=== PATIENT | female | born 1940 | race Caucasian/White ===

== ENCOUNTER → 2018-04-12 12:09 | Outpatient (CLI) | payer MEDICARE, OTHER, SELFPAY ==
--- NOTE | 2018-04-12 12:11 | DI.ECHO.S_ITS ---
[facility]+ [facility] +---------+ : : [address] : : : [place], [place] : : : : [id number] : : : : Phone: [phone] Echocardiogram Report + + :Name: BETTY NUGENT Study Date: 04/12/2018 : :[facility] Exam Location: [facility] : : Gender: Female : :: 1940 Age: 77 yrs BP: 142/58 mmHg: :Reason For Study: Chemotherapy Follow Up : : Performed By: Virginia Pierce : :Referring: LEOBARDO CARDENAS : + + Interpretation Summary The ejection fraction is estimated to be 60-65%. There has been no significant change since the previous study. The right ventricle grossly appears normal in size with probable normal systolic function. Procedure: A two-dimensional transthoracic echocardiogram with color flow and Doppler was performed in limited views only. Focused echocardiogram to assess left ventricular function. Comparison is made with the echocardiogram of 12/31/2017. Most of the acoustic windows were suboptimal, but the best imaging was obtained from the subcostal window. The patient was in normal sinus rhythm during the exam. Left Ventricle: The left ventricle is normal in size. Left ventricular wall thickness is at the upper limits of normal. The ejection fraction is estimated to be 60-65%. There has been no significant change since the previous study. Right Ventricle: The right ventricle grossly appears normal in size with probable normal systolic function. Mitral Valve: The mitral valve is grossly normal. There is trace mitral regurgitation. Aortic Valve: The aortic valve is grossly normal. No aortic regurgitation is present. Tricuspid Valve: The tricuspid valve is normal in structure and function. There is a trace or physiologic amount of tricuspid regurgitation. Pulmonary artery pressures cannot be estimated because of the lack of a measurable TR jet velocity. Great Vessels: The IVC is of normal diameter and collapses greater than 50% with a sniff. This suggests a low right atrial pressure of 3 mm Hg. Pericardium/ Pleura There is no pericardial effusion. There is no pleural effusion. MMode/2D Measurements & Calculations LVIDd: 4.2 cm LVOT diam: 2.0 cm LVIDs: 2.7 cm FS: 36.6 % IVSd: 1.1 cm LVPWd: 0.96 cm Reading Physician:CARLOS
== END ==
PROVIDERS: Family Provider Family Medicine; PCP Family Medicine; Visit Provider Internal Medicine Hematology & Oncology
DX: C56.9 Malignant neoplasm of unspecified ovary (principal); Z08 Encounter for follow-up examination after completed treatment for malignant neoplasm
CPT/HCPCS: 93307

== ENCOUNTER 2018-05-16 10:21 | Emergency (ER) | payer MEDICARE, OTHER, SELFPAY ==
[2018-05-16 10:24] VITALS: TEMP 36.4; BMI 20.5
--- NOTE | 2018-05-16 10:32 | ED.FALL ---
HPI - Fall General Chief Complaint: Fall Stated Complaint: FELL LAST NIGHT Time Seen by Provider: 05/16/18 10:31 Source: patient Mode of arrival: wheelchair Limitations: no limitations History of Present Illness HPI Narrative: 77-year-old female currently being treated for ovarian cancer here for evaluation of a fall. Patient states that last evening she was walking to her car and tripped over her cane. She states she landed on her right knee and right hand and then fell and landed on her face. She does not think that she lost consciousness but she is not exactly sure. Had problems ambulating afterwards. Has not been able to bear weight on her right leg since then. Does have an abrasion and cut above her right eye. No vision changes. Patient not on anticoagulation. Patient states that the time of her fall she did not have chest pain, palpitations, lightheadedness, dizziness. Related Data Home Medications Medication Instructions Recorded Confirmed cholecalciferol (vitamin D3) 2,000 iu PO QDAY #0 09/16/17 05/16/18 [Vitamin D3] cyanocobalamin (vitamin B-12) 500 mcg PO QDAY #0 09/16/17 05/16/18 [Vitamin B-12] Cbd Tincture 1 dose PO DAILY 05/16/18 05/16/18 sertraline 50 mg PO BEDTIME 05/16/18 05/16/18 Previous Rx's Medication Instructions Recorded ondansetron [Zofran ODT] 4 mg SUBLINGUAL Q6HP PRN #30 odt 01/04/18 alprazolam 0.25 mg PO BID PRN #60 tab 03/22/18 docusate sodium [Colace] 100 mg PO BID PRN #14 cap 05/16/18 hydrocodone-acetaminophen [Independence] 1 tab PO Q4-6H PRN #14 tab 05/16/18 Allergies Allergy/AdvReac Type Severity Reaction Status Date / Time Sulfa (Sulfonamide Allergy Intermediate RASH Verified 05/16/18 10:29 Antibiotics) carboplatin AdvReac Severe SEVERE SOB Verified 05/16/18 10:29 Review of Systems Constitutional Denies fatigue, Denies fever(s), Denies frequent falls, Denies lethargy and Denies weakness Eyes Denies blurry vision, Denies diplopia, Denies irritation, Denies loss of vision and Denies eye pain ENT Ears, Nose, Mouth, and Throat: Denies dental pain, Denies vertigo, Denies dizziness, Denies sinus pain, Denies sore throat and Denies throat swelling Cardiovascular Denies chest pain, Denies palpitations and Denies dyspnea Respiratory Denies cough and Denies dyspnea Gastrointestinal Gastrointestinal: Denies cramping, Denies diarrhea, Denies nausea and Denies vomiting Genitourinary Denies dysuria and Denies flank pain Musculoskeletal Comments: Right hip pain Integumentary/Breasts Comments: Abrasions around the right eye Neurologic Denies vertigo, Denies dizziness, Denies frequent falls, Denies loss of vision and Denies weakness Endocrine Denies fatigue and Denies palpitations Hematologic/Lymphatic Denies easy bleeding and Denies easy bruising Allergic/Immunologic Denies urticaria and Denies throat swelling Exam Initial Vital Signs Initial Vital Signs: Vital Signs Temperature 97.6 F 05/16/18 10:24 Const General: cooperative, healthy appearing, comfortable, well developed, well groomed and No acute distress Orientation: alert, awake and oriented x3 HENMO Head: other (Patient with bruising around her right eye with a 2 cm superficial laceration above her right eye. ) Eyes Alignment and Position: alignment normal Conjunctivae: conjunctivae normal Sclera: sclerae normal Pupils: PERRL EOM: EOM intact bilaterally Resp Effort & Inspection: normal respiratory effort Auscultation: clear to auscultation bilaterally Cardio Rate: regular rate Skin Other: 2 cm superficial laceration above the right eye without drainage or bleeding. Bruising around the right eye. Neuro General: alert, awake and oriented x3 Extrem Other: Patient bilateral upper extremities unremarkable Patient pelvis is stable Right ankle and right knee unremarkable Patient with tenderness with flexion of the right hip. Pain with abduction and abduction. [facility] Social History Smoking Status: Current every day smoker Course Orders Ordered: ED Orders 05/16/18 10:37 XR hip w pel if done RT 2V Stat 05/16/18 12:06 CT LE RT wo con Stat Discontinued Medications Hydrocodone Bitart/Acetaminophen (Independence 5/325) 1 tab PO NOW ONE Stop: 05/16/18 13:04 Vital Signs - 8 hr 05/16/18 10:24 05/16/18 11:27 05/16/18 12:56 Temperature 97.6 F Pulse Rate 71 64 Respiratory Rate 16 14 Blood Pressure [Right Arm] 130/56 H 156/69 H Pulse Oximetry 94 96 MDM - Fall Imaging Data X-ray right hip: Radiologist's impression: PROCEDURE: XR HIP W PEL IF DONE RT 2V INDICATIONS: fall TECHNIQUE: AP pelvis with lateral view(s) of the right hip(s). COMPARISON: None. FINDINGS: Bones: No fractures or dislocations. Pelvic ring appears intact. No suspicious bony lesions. Soft tissues: The visualized bowel gas pattern is normal. No suspicious soft tissue calcifications. Multiple surgical clips left hemipelvis. IMPRESSION: Negative for fracture Dictated by: Jomar Rasheed M.D. on 05/16/2018 at 11:34 Approved by: Jomar Rasheed M.D. on 05/16/2018 at 11:35 CT right hip: Radiologist's impression: PROCEDURE: CT LE RT WO CON INDICATIONS: Right proximal femur pain concern for fracture TECHNIQUE: Noncontrast 3 mm axial sections acquired through the bony pelvis. Additional 3 mm axial sections acquired through the symptomatic hip joint, with coronal and sagittal reformats. COMPARISON: [facility], [place], PET/CT SKULL BASE TO MID THIGH, 09/24/2017, 9:12. [facility], [place], CHEST/ABD/PEL WITH CONTRAST, 12/23/2017, 11:06. [facility], [place], XR HIP W PEL IF DONE RT 2V, 05/16/2018, 10:39. FINDINGS: Image quality: Excellent. Bones: There is a nondisplaced right superior pubic ramal fracture. The right hip is anatomic alignment without fracture. Soft tissues: Mild contusion of the subcutaneous tissue of the right thigh. No soft tissue mass or hematoma. Mildly enlarged mesenteric lymph nodes are noted, slightly increased in size compared to those of the congestion aching. Scattered colonic diverticula in sigmoid colon. There is severe atherosclerosis of the aorta and iliac arteries. IMPRESSION: 1. Nondisplaced right superior pubic ramal fracture. 2. Scattered colonic diverticula sigmoid colon. No acute diverticulitis. 3. Mildly enlarged mesenteric lymph nodes, slightly increased in size since the last CT. 4. Severe atherosclerosis. Dictated by: Torito Wei M.D. on 05/16/2018 at 12:28 MDM Narrative Medical decision making narrative: X-ray negative for fracture. I obtained a CT scan secondary to the patient's pain in the location with concerns of an occult hip fracture. The CT scan did show a right superior pubic rami fracture. No femoral neck fracture. Patient does have a walker at home. We did discussed symptom control. We did discuss her diagnosis and projected course. We discussed return precautions. Patient's daughter was at bedside for these discussions. She expressed understanding and agreement with plan. Discharge Plan Departure Patient Disposition: Home, Self-Care Clinical Impression: Fracture of pubic ramus, Contusion of right eye Instructions: DI for Pelvic Fracture, How To Perform RICE (Rest, Ice, Compress, Elevate) Activity Restrictions/Additional Instructions: Recommend you take the medication like we discussed. Call your primary care doctor for a follow-up. You can walk as tolerated and use her walker as needed. Return to the emergency department for any new or worsening symptoms. You can shower like normal using soap and water on the contusion of your right eye. This may actually get a little worse over the next couple days. With regard to this return to the emergency department for any new symptoms, vision problems, any other worsening symptoms. Prescriptions: New docusate sodium [Colace] 100 mg capsule 100 mg PO BID PRN (Reason: constipation) Qty: 14 RF: 0 hydrocodone-acetaminophen [Independence] 5-325 mg tablet 1 tab PO Q4-6H PRN (Reason: pain) Qty: 14 RF: 0 No Action cyanocobalamin (vitamin B-12) [Vitamin B-12] 500 MCG tablet 500 mcg PO QDAY Qty: 0 RF: 0 cholecalciferol (vitamin D3) [Vitamin D3] 2,000 UNIT capsule 2,000 iu PO QDAY Qty: 0 RF: 0 ondansetron [Zofran ODT] 4 MG tablet,disintegrating 4 mg Sublingual Q6HP PRNQty: 30 RF: 0 alprazolam 0.25 mg Tablet 0.25 mg PO BID PRN (Reason: Anxiety) Qty: 60 RF: 0 Cbd Tincture 1 dose PO DAILY RF: 0 sertraline 50 mg tablet 50 mg PO BEDTIME RF: 0
--- NOTE | 2018-05-16 10:37 | DI.RAD.S_ITS ---
PROCEDURE: XR HIP W PEL IF DONE RT 2V INDICATIONS: fall TECHNIQUE: AP pelvis with lateral view(s) of the right hip(s). COMPARISON: None. FINDINGS: Bones: No fractures or dislocations. Pelvic ring appears intact. No suspicious bony lesions. Soft tissues: The visualized bowel gas pattern is normal. No suspicious soft tissue calcifications. Multiple surgical clips left hemipelvis. IMPRESSION: Negative for fracture Dictated by: Jomar Rasheed M.D. on 05/16/2018 at 11:34 Approved by: Jomar Rasheed M.D. on 05/16/2018 at 11:35
[2018-05-16 11:27] VITALS: BP 130/56; PULSE 71; RESP 16; O2SAT 94
--- NOTE | 2018-05-16 12:06 | DI.CT.S_ITS ---
PROCEDURE: CT LE RT WO CON INDICATIONS: Right proximal femur pain concern for fracture TECHNIQUE: Noncontrast 3 mm axial sections acquired through the bony pelvis. Additional 3 mm axial sections acquired through the symptomatic hip joint, with coronal and sagittal reformats. COMPARISON: [facility], [place], PET/CT SKULL BASE TO MID THIGH, 09/24/2017, 9:12. [facility], [place], CHEST/ABD/PEL WITH CONTRAST, 12/23/2017, 11:06. [facility], [place], XR HIP W PEL IF DONE RT 2V, 05/16/2018, 10:39. FINDINGS: Image quality: Excellent. Bones: There is a nondisplaced right superior pubic ramal fracture. The right hip is anatomic alignment without fracture. Soft tissues: Mild contusion of the subcutaneous tissue of the right thigh. No soft tissue mass or hematoma. Mildly enlarged mesenteric lymph nodes are noted, slightly increased in size compared to those of the congestion aching. Scattered colonic diverticula in sigmoid colon. There is severe atherosclerosis of the aorta and iliac arteries. IMPRESSION: 1. Nondisplaced right superior pubic ramal fracture. 2. Scattered colonic diverticula sigmoid colon. No acute diverticulitis. 3. Mildly enlarged mesenteric lymph nodes, slightly increased in size since the last CT. 4. Severe atherosclerosis. Dictated by: Torito Wei M.D. on 05/16/2018 at 12:28 Approved by: Torito Wei M.D. on 05/16/2018 at 12:49
[2018-05-16 12:56] VITALS: BP 156/69; PULSE 64; RESP 14; O2SAT 96
[2018-05-16] MEDS: HYDROCODONE/ACET 5/325 TABLET 1 TAB PO (13:27)
== END 2018-05-16 13:44 | disposition home or self-care (01) ==
PROVIDERS: Emergency Provider Emergency Medicine; Family Provider Family Medicine; PCP Family Medicine
DX: S32.599A Other specified fracture of unspecified pubis, initial encounter for closed fracture (principal); S05.11XA Contusion of eyeball and orbital tissues, right eye, initial encounter; W01.0XXA Fall on same level from slipping, tripping and stumbling without subsequent striking against object, initial encounter
CPT/HCPCS: 73502; 73700; 99283; 99284

== ENCOUNTER → 2018-06-23 09:57 | Outpatient (CLI) | payer MEDICARE, OTHER, SELFPAY ==
--- NOTE | 2018-06-23 11:50 | DI.CT.S_ITS ---
PROCEDURE: CT ABDOMEN PELVIS W CON INDICATIONS: restaging ovarian cancer following chemotherapy TECHNIQUE: After the administration of oral and intravenous contrast, 5 mm thick sections acquired from the diaphragms to the symphysis. 5 mm thick coronal and sagittal reformats were performed. For radiation dose reduction, the following was used: automated exposure control, adjustment of mA and/or kV according to patient size. COMPARISON: [facility], CT, CHEST/ABD/PEL WITH CONTRAST, 12/23/2017, 11:06. FINDINGS: Image quality: Excellent. ABDOMEN: Lung bases: Lung bases are clear. Heart size is normal. Solid organs: Liver is normal in size and enhancement. Gallbladder is within normal limits. Biliary system is non-dilated. Pancreas enhances normally. Spleen is normal in size and enhancement. No right adrenal nodules. No change in 11 mm diameter nodule within the lateral limb of the left adrenal. Kidneys are normal in size and enhancement, without hydronephrosis. Peritoneum and bowel: No change in small hiatal hernia. Stomach, small bowel, and colon loops are normal in caliber and wall thickness. No change in 20 mm diameter soft tissue nodule within the right posterior pelvis, adjacent to small bowel limits. No free fluid or air. Nodes and vessels: No retroperitoneal or mesenteric adenopathy. Scattered mildly prominent mesenteric lymph nodes are unchanged, measuring less than 10 mm short axis. Multiple retroperitoneal surgical clips are present. Severe atherosclerotic plaque of the aorta and its branches. Aorta and inferior vena cava are otherwise normal in caliber. Miscellaneous: No ventral hernias. PELVIS: Genitourinary: Bladder wall thickness is normal. Miscellaneous: No inguinal hernias or adenopathy. Bones: No suspicious bony lesions. No vertebral body compression fractures. IMPRESSION: 1. No change compared to 12.23.18. 2. No change in right posterior pelvic soft tissue nodule. 3. No change in mildly prominent mesenteric lymph nodes. 4. No change in left adrenal nodule. Dictated by: Saad Ramey M.D. on 06/23/2018 at 13:32 Approved by: Saad Ramey M.D. on 06/23/2018 at 13:35
== END ==
PROVIDERS: Family Provider Obstetrics & Gynecology; PCP Family Medicine; Visit Provider Internal Medicine Hematology & Oncology
DX: C56.9 Malignant neoplasm of unspecified ovary (principal)
CPT/HCPCS: 74177; Q9967

== ENCOUNTER → 2018-09-26 08:09 | Outpatient (CLI) | payer MEDICARE, OTHER, SELFPAY ==
--- NOTE | 2018-09-26 08:56 | DI.CT.S_ITS ---
PROCEDURE: CT CHEST ABD PEL W CON INDICATIONS: surveillance ovarian cancer TECHNIQUE: After the administration of oral and intravenous contrast, 5 mm thick sections acquired from the lung apices to the symphysis. 5 mm coronal and sagittal reformats were performed, with additional 7 mm coronal MIP reformats through the lungs. For radiation dose reduction, the following was used: automated exposure control, adjustment of mA and/or kV according to patient size. COMPARISON: [facility], [place], PET NECK TO MID THIGH, 08/03/2018, 13:42. [facility], CT, CT ABDOMEN PELVIS W CON, 06/23/2018, 11:46. [facility], CT, CHEST/ABD/PEL WITH CONTRAST, 12/23/2017, 11:06. FINDINGS: Image quality: Excellent. CHEST: Lungs and pleura: No acute consolidation. No pleural effusions or pneumothorax. Central and peripheral airways appear patent and normal in caliber. Mediastinum: Heart size is normal. No pericardial effusion. No mediastinal or hilar adenopathy by size criteria. Thoracic aorta and central pulmonary arteries are normal in size. Esophagus is normal in caliber. Small hiatal hernia. Chest wall: No axillary or supraclavicular adenopathy by size criteria. Thyroid gland negative. ABDOMEN: Solid organs: Hepatic steatosis otherwise liver is normal in size and enhancement. Gallbladder unremarkable. Biliary system is non dilated. Pancreas enhances normally. Spleen is normal in size and enhancement. No adrenal nodules. Kidneys demonstrate normal size and enhancement, without hydronephrosis. Peritoneum and bowel: Bowel loops demonstrate normal wall thickness and caliber. No free fluid or air. Nodes and vessels: There are scattered multiple small and confluent mesenteric lymph nodes with surrounding hazy attenuation in the mesenteric fat. These appear slightly increased in size and bulk although exact measurements are difficult due to irregular configuration however on image 1.9 x 0.9 cm confluent sharyn tissue previously measured 1.5 x 0.7 cm on 06/23/18. Mild ectasia of the infrarenal abdominal aorta. Miscellaneous: Small paraumbilical bowel containing ventral hernia measuring 2 cm on image 86 series 2. No evidence of obstruction. PELVIS: Genitourinary: Bladder wall thickness is normal. Right posterior pelvic mass measuring 3.2 x 1.5 cm is increased in size since 06/23/18 previously 2.2 x 1.3 cm on the prior study Miscellaneous: No inguinal hernias or adenopathy. Bones: Redemonstration of right superior and inferior pubic ramus fracture with callus formation. Diffuse osteopenia. IMPRESSION: Interval increase in scattered mesenteric lymph nodes since 06/23/18 in keeping with active residual tumor. Right posterior pelvic soft tissue mass also increased in size and demonstrated increased hypermetabolic appearance on the prior PET/CT, consistent with residual active tumor/metastasis. Additional chronic and incidental findings as above. Dictated by: Eleno Martinez M.D. on 09/26/2018 at 11:07 Approved by: Eleno Martinez M.D. on 09/26/2018 at 11:22
== END ==
PROVIDERS: PCP Family Medicine
DX: C56.9 Malignant neoplasm of unspecified ovary (principal); R19.00 Intra-abdominal and pelvic swelling, mass and lump, unspecified site; M85.80 Other specified disorders of bone density and structure, unspecified site; K76.0 Fatty (change of) liver, not elsewhere classified; K43.9 Ventral hernia without obstruction or gangrene; I77.811 Abdominal aortic ectasia
CPT/HCPCS: 71260; 74177; Q9967

== ENCOUNTER 2018-10-19 21:31 | Emergency (ER) | payer MEDICARE, OTHER, SELFPAY ==
[2018-10-19 21:36] VITALS: BP 162/69; PULSE 90; RESP 14; TEMP 36.7; O2SAT 98; BMI 22.1
[2018-10-19 22:00] VITALS: BP 144/55; PULSE 64; RESP 15; TEMP 36.7; O2SAT 100; BMI 22.1
--- NOTE | 2018-10-19 22:12 | ED.BACK ---
HPI - Back Pain/Injury General Chief Complaint: Back Pain/Injury Stated Complaint: SHOOTING PAINS BACK TO FRONT Time Seen by Provider: 10/19/18 22:11 Source: patient Mode of arrival: ambulatory Limitations: no limitations History of Present Illness HPI Narrative: Patient is a 77-year-old female with history of ovarian cancer. Currently undergoing palliative chemotherapy. Here for evaluation of right-sided back pain. She states that it started within the past 24 hr. She was sitting at the kitchen table when it started. She states that it comes and goes. She states it feels like it is a muscle spasm. Is on the right side of her back goes from her lower back to her upper back and even the back of her head. Last for several seconds and then seems to improve. Not worse with palpation or movement. Related Data Home Medications Medication Instructions Recorded Confirmed cholecalciferol (vitamin D3) 2,000 iu PO QDAY #0 09/16/17 09/28/18 [Vitamin D3] cyanocobalamin (vitamin B-12) 500 mcg PO QDAY #0 09/16/17 09/28/18 [Vitamin B-12] Cbd Tincture 1 dose PO DAILY 05/16/18 09/28/18 lorazepam 0.25 mg PO BID-TID PRN 08/09/18 09/28/18 Previous Rx's Medication Instructions Recorded ondansetron [Zofran ODT] 4 mg SUBLINGUAL Q6HP PRN #30 odt 01/04/18 docusate sodium [Colace] 100 mg PO BID PRN #14 cap 05/16/18 sertraline 50 mg PO BEDTIME #90 tab 06/07/18 alprazolam 0.25 mg PO BID PRN #60 tab 10/12/18 cyclobenzaprine 10 mg PO TID PRN #10 tab 10/19/18 Allergies Allergy/AdvReac Type Severity Reaction Status Date / Time carboplatin Allergy Severe SEVERE SOB Verified 10/19/18 21:40 Sulfa (Sulfonamide Allergy Intermediate RASH Verified 10/19/18 21:40 Antibiotics) Review of Systems Constitutional Reports headache(s) and Denies weakness ENT Ears, Nose, Mouth, and Throat: Denies vertigo, Denies dizziness, Reports headache(s) and Denies disequilibrium Cardiovascular Denies chest pain and Denies dyspnea Respiratory Denies dyspnea Gastrointestinal Gastrointestinal: Denies abdominal pain Musculoskeletal Reports back pain, Denies myalgias, Denies arthralgias and Denies tingling Integumentary/Breasts Denies lesions and Denies rash Neurologic Denies confusion, Denies vertigo, Denies dizziness, Reports headache(s), Denies radicular pain, Denies sensory deficit, Denies tingling, Denies disequilibrium and Denies weakness Psychiatric Denies confusion Hematologic/Lymphatic Comments: Not on anticoagulation [facility] Medical History Ovarian cancer (Acute) Social History Smoking Status: Current every day smoker Exam Initial Vital Signs Initial Vital Signs: Vital Signs Temperature 98.0 F 10/19/18 21:36 Pulse Rate 90 10/19/18 21:36 Respiratory Rate 14 10/19/18 21:36 Blood Pressure 162/69 H 10/19/18 21:36 Pulse Oximetry 98 10/19/18 21:36 Const General: cooperative, well developed, well groomed and No acute distress Orientation: alert, awake and oriented x3 HENMT Head: normal to inspection and normocephalic Resp Effort & Inspection: normal respiratory effort Cardio Rate: regular rate Back/Spine/Pelvis Other: Patient had an episode of her muscle spasm while I was in the room. She reported on the right side. It was paraspinal. Did seem to have chirinos muscles on that side. Extended up the erector spinae muscles to her neck. Skin Lesions: no lesions Rashes: no rashes Neuro General: alert, awake and oriented x3 Cognition: normal cognition Speech: speech normal Motor: muscle tone normal throughout Sensory Exam: no sensory deficits noted Extrem General: normal to inspection and capillary refill normal Psych Appearance: grossly normal and well kempt Course Orders Ordered: Discontinued Medications Cyclobenzaprine HCl (Flexeril) 10 mg PO NOW ONE Stop: 10/19/18 22:27 Last Admin: 10/19/18 22:35 Dose: 10 mg Cyclobenzaprine HCl (Flexeril 10 Mg Prepack) 1 bottle MISC SEEINSTR ONE Stop: 10/19/18 22:27 Last Admin: 10/19/18 22:35 Dose: 1 bottle Vital Signs - 8 hr 10/19/18 21:36 10/19/18 22:00 12/12/18 22:42 Temperature 98.0 F 98.0 F Pulse Rate 90 64 64 Respiratory Rate 14 15 15 Blood Pressure 162/69 H 144/55 H 144/55 H Pulse Oximetry 98 100 100 MDM - Back Pain/Injury MDM Narrative Medical decision making narrative: Patient does have a history of ovarian cancer. She states that she does not have any known metastasis to the bone. She has no midline lower back pain. No urinary symptoms. No bowel symptoms. No radiation to her lower extremities. Will hold on radiologic studies today. I do feel that this is most likely muscle spasms are causing her symptoms. Was sent home with Flexeril. We did discuss the importance of her being careful at home to avoid falling. We discussed return precautions. She expressed understanding and agreement with plan. Discharge Plan Departure Patient Disposition: Home Clinical Impression: Muscle spasm of back Discharge Date/Time: 10/19/18 22:43 Interventions: ED Discharge Assessment Last Done: 10/19/18 22:42 Instructions: How to Prevent Falls, DI for Back Spasm Activity Restrictions/Additional Instructions: The medication you were given this evening can make you drowsy. No driving while you are taking it. Please be careful with getting up and movement to prevent falling. Recommend you contact your primary care doctor for a follow-up. Return to the emergency department for any new or worsening symptoms Prescriptions: New cyclobenzaprine 10 mg tablet 10 mg PO TID PRN (Reason: muscle spasm) Qty: 10 RF: 0 No Action cyanocobalamin (vitamin B-12) [Vitamin B-12] 500 MCG tablet 500 mcg PO QDAY Qty: 0 RF: 0 cholecalciferol (vitamin D3) [Vitamin D3] 2,000 UNIT capsule 2,000 iu PO QDAY Qty: 0 RF: 0 ondansetron [Zofran ODT] 4 MG tablet,disintegrating 4 mg Sublingual Q6HP PRNQty: 30 RF: 0 sertraline 50 mg tablet 50 mg PO BEDTIME Qty: 90 RF: 1 lorazepam 0.5 mg Tablet 0.25 mg PO BID-TID PRN (Reason: Anxiety) RF: 0 alprazolam 0.25 mg Tablet 0.25 mg PO BID PRN (Reason: Anxiety) Qty: 60 RF: 0 Cbd Tincture 1 dose PO DAILY RF: 0 docusate sodium [Colace] 100 mg capsule 100 mg PO BID PRN (Reason: constipation) Qty: 14 RF: 0
[2018-10-19] MEDS: CYCLOBENZAPRINE 10 MG PREPACK 1 BOTTLE MISC (22:35)
[2018-10-19] MEDS: CYCLOBENZAPRINE 10 MG TABLET PO (22:35)
[2018-10-19 22:42] VITALS: BP 144/55; PULSE 64; RESP 15; O2SAT 100
== END 2018-10-19 22:43 | disposition home or self-care (01) ==
PROVIDERS: Emergency Provider Emergency Medicine; Family Provider Family Medicine; PCP Family Medicine
DX: M62.830 Muscle spasm of back (principal)
CPT/HCPCS: 36592; 85025; 99282; 99283

== ENCOUNTER → 2018-12-12 10:58 | Outpatient (CLI) | payer MEDICARE, OTHER, SELFPAY ==
--- NOTE | 2018-12-12 11:15 | DI.CT.S_ITS ---
PROCEDURE: CT CHEST ABD PEL W CON INDICATIONS: surveillance TECHNIQUE: After the administration of oral and intravenous contrast, 5 mm thick sections acquired from the lung apices to the symphysis. 5 mm coronal and sagittal reformats were performed, with additional 7 mm coronal MIP reformats through the lungs. For radiation dose reduction, the following was used: automated exposure control, adjustment of mA and/or kV according to patient size. COMPARISON: [facility], CT, CHEST/ABD/PEL WITH CONTRAST, 12/23/2017, 11:06. [facility], CT, CT ABDOMEN PELVIS W CON, 06/23/2018, 11:46. [facility], CT, CT CHEST ABD PEL W CON, 09/26/2018, 9:05. FINDINGS: Image quality: Excellent. CHEST: Lungs and pleura: No acute airspace opacities. No pleural effusions or pneumothorax. Central and peripheral airways appear patent and normal in caliber. Mediastinum: Heart size is normal. No pericardial effusion. No mediastinal or hilar adenopathy by size criteria. Thoracic aorta and central pulmonary arteries are normal in size. Atherosclerotic calcification is noted. Esophagus is normal in caliber. No hiatal hernia. Chest wall: No axillary or supraclavicular adenopathy by size criteria. Thyroid gland demonstrates no significant CT abnormality. ABDOMEN: Solid organs: Liver is normal in size and enhancement. Gallbladder wall does not appear thickened. Biliary system is non dilated. Pancreas enhances normally. Spleen is normal in size and enhancement. Incidental note is made of an accessory spleen along the anterior aspect of the primary spleen. There is a stable nodule seen involving the left lateral adrenal limb. No right adrenal nodules. Kidneys demonstrate normal size and enhancement, without hydronephrosis. Peritoneum and bowel: Bowel loops demonstrate normal wall thickness and caliber. No free fluid or air. Diverticulosis is seen, without findings of active diverticulitis. Nodes and vessels: Enlarged mesenteric lymph nodes are seen, which are slightly increased in size compared to the prior examination. Just anterior to the aorta, there is a 15 x 9 mm nodule. On the prior CT, this same lymph node measured 13 x 7 mm, when measured in a similar fashion. Aorta and inferior vena cava are normal in size. However, distal abdominal aortic ectasia can be seen with irregularity, measuring up to 2.5 cm AP. Atherosclerotic calcification is noted. Periaortic postoperative clips are seen. Miscellaneous: No ventral hernias. The previously seen periumbilical hernia is no longer seen. PELVIS: Genitourinary: Bladder wall thickness is normal. This patient is status post hysterectomy. No adnexal masses are seen. Miscellaneous: There is a right presacral soft tissue mass seen, measuring 3.3 x 2 cm, which is slightly increased in size compared to 09/26/2018, and it measured 3.2 x 1.5 cm, when measured in a similar fashion. Bones: No suspicious bony lesions. No vertebral body compression fractures. Lower cervical spine fixation hardware is seen. Degenerative changes are seen throughout, which are most prominent at the L3-L4 level. Minimal retrolisthesis can be seen at L3-L4. Mild levoconvex scoliotic curvature is noted. IMPRESSION: Increased size of the right presacral mass. Increased size of the mesenteric lymph nodes. Stable left adrenal nodule. Incidental note is made of: Lower cervical spine fixation hardware Accessory spleen Periaortic postoperative clips Diverticulosis is seen, without findings of active diverticulitis. Hysterectomy Levoconvex scoliotic curvature Focal L3-L4 degenerative change Apparent interval periumbilical hernia repair Dictated by: Mateus Figueroa M.D. on 12/12/2018 at 11:57 Approved by: Mateus Figueroa M.D. on 12/12/2018 at 12:09
== END ==
PROVIDERS: Family Provider Family Medicine; PCP Family Medicine; Visit Provider Nurse Practitioner Gerontology
DX: C56.9 Malignant neoplasm of unspecified ovary (principal); R59.0 Localized enlarged lymph nodes; E27.9 Disorder of adrenal gland, unspecified
CPT/HCPCS: 71260; 74177; Q9967

== ENCOUNTER 2019-01-12 12:24 | Outpatient (RCR) | payer MEDICARE, OTHER, SELFPAY ==
--- NOTE | 2019-01-12 16:00 | PT.OIE ---
Current Diagnoses Polyneuropathy, unspecified (01/12/19) Unsteadiness on feet (01/12/19) Past Medical History (Last Updated 10/20/18 @ 02:15 by Harrison Martino DO) Ovarian cancer (Acute) Provider Visit Care Team Role Provider Type Harrison Ott MD Primary Care Provider Physician Specialty: Family Practice Address: [address] [place], [address] Email: MIK Wang Attending Provider Advanced Weather Forecaster Specialty: Internal Medicine Address: [address] [place] [address], [id number] Email: Physical Therapy Initial Evaluation PT-OP-A Visit Information Start: 01/06/19 16:11 Freq: Status: Active Protocol: Document 01/12/19 12:50 LRN (Rec: 01/12/19 14:44 LRN [id number]) Out-Patient Physical Therapy Visit Information Visit Information Visit Type Initial Evaluation Visit Start Time 12:50 Visit Stop Time 13:42 Total Visit Minutes 52 Visit Number 1 Number of MANAGER OUTREACH Visits 0 Evaluation Information Evaluation Date 01/12/19 Precautions Precautions Ovarian cancer history, pt will possibly be restarting chemotherapy, port in place. Other surgeries related to cancer, not yet identified. Osteoporosis, COPD, Arthritis Neuropathy of the feet and hands Lightheaded feeling 99% of the time PT-OP-B Current Condition Start: 01/06/19 16:11 Freq: Status: Active Protocol: Document 01/12/19 12:50 LRN (Rec: 01/12/19 14:44 LRN [id number]) Current Condition History of Current Condition Onset Date Balance deficit onset 10 yrs ago, recent worsening in 2018 Current Complaints Poor balance, difficulty walking & R low back pain radiating into the front History of Current Condition Pt reports she has been undergoing chemotherapy for ovarian cancer for the past year. She suffered a fall on 05/15/19 and reports fracturing her pelvis with worsening of balance over the past year. She denies dizziness or vertigo. She states her problem is feeling lightheaded 99% of the time and is taking travel sickness pills to help control the lightheaded feeling. She is seeing her physician 01/17/19 to determine if she will be restarting chemotherapy. She states since undergoing chemotherapy she has now neuropathy of her feet and hands. She reports having surgeries related to her cancer but is not sure what she has had. Records were unavailable to verify. Prior Treatments and Tests CT scan, 05/16/18, indicates nondisplaced R superior pubic ramal fracture. Future Testing and Treatments Planned MRI Treatment Goals Patient/Caregiver Goals Pt goal is to get the evaluation done to proceed with the next step, improve balance to prevent falling and decrease back pain. Prior Functional Status Baseline Function- ADL's Modified Independent Baseline Function- Mobility Modified Independent Baseline Function- Gait Uses walker. Son helps when needed. Baseline Function- Other Son helps as needed. Current Functional Impairments (Reported) Functional Limitations- ADL's Decreased transfer ability, standing, bending, reaching. Functional Limitations- Mobility/Gait Assistive device needed for safe gait. Personal Factors Other Personal Factors That May Effect Currently deciding on Therapy/Recovery restarting chemotherapy for ovarian cancer. Osteoporosis, COPD, severe athlerosclerosis, arthritis Neuropathy of the feet and hands. History of surgeries related to cancer. PT-OP-C Subjective Start: 01/06/19 16:11 Freq: Status: Active Protocol: Document 01/12/19 12:50 LRN (Rec: 01/12/19 17:16 LRN [id number]) Patient Questionnaires ABC- Activity Specific Balance Confidence Scale ABC Score 16.875 ABC Functional Impairment 80 to <100% Impaired (Score 1- 20) Dizziness Handicap Inventory DHI Functional Impairment 20 to 39% Impaired (Score 20- 39) OP-PT Pain Assessment Pain Assessment Grid Paper Pain Assessment Grid Completed Yes Location R Low Back Pain Location Details R Low back radiating into the anterior abdomen Intensity 5 Scale Used Numeric (1 - 10) Description Aching Radiating Location Anterior abdomen Pain Behaviors Pain Behaviors Holding Area Moaning PT-OP-D Balance Start: 01/06/19 16:11 Freq: Status: Active Protocol: Document 01/12/19 12:50 LRN (Rec: 01/12/19 17:10 LRN [id number]) Balance Tests Loyd Balance Test Loyd Balance Test Score 35 Loyd Impairment Rating 20 to 39% Impaired (Score 34- 44) Single Limb Standing Single Limb- Right 0 Single Limb- Left 0 PT-OP-E Functional Tests Start: 01/06/19 16:11 Freq: Status: Active Protocol: Document 01/12/19 12:50 LRN (Rec: 01/12/19 17:10 LRN [id number]) Functional Tests Timed Up and Go (TUG) Score 41 TUG Impairment Rating 100% Impaired (Score 20) Tinetti Balance and Gait Assessment Balance Score 5 Balance Score Impairment Rating 60 to <80% Impaired (Score 4-6 ) PT-OP-G Mobility & Gait Start: 01/06/19 16:11 Freq: Status: Active Protocol: Document 01/12/19 12:50 LRN (Rec: 01/12/19 17:10 LRN [id number]) OP Gait Assessment Gait Gait Assistance Required: Contact Guard Assist Distance (Feet) 100 Able to Maintain Weight Bearing Status Yes During Gait Assistive Devices Assistive Device None Gait Belt Gait Deviations General Gait Pattern Decreased Stride Length Narrow Based Gait Factors Limiting Gait Function Factors Limiting Gait Function Decreased Strength Poor Balance PT-OP-H Neuro Start: 01/06/19 16:11 Freq: Status: Active Protocol: Document 01/12/19 12:50 LRN (Rec: 01/12/19 17:10 LRN [id number]) Sensation Evaluation Comments Summary Comments Pt appeared to have sensation intact in the LE's and feet to soft touch. PT-OP-J Posture/Palpation/Skin Start: 01/06/19 16:11 Freq: Status: Active Protocol: Document 01/12/19 12:50 LRN (Rec: 01/12/19 17:10 LRN [id number]) Palpation Assessment Location R Low Back Palpation Location Right Paraspinals, Quadratus Lumborum, Upper Gluteals Palpation Findings Soft Tissue Tightness Muscle Guarding Tenderness PT-OP-K Range of Motion Start: 01/06/19 16:11 Freq: Status: Active Protocol: Document 01/12/19 12:50 LRN (Rec: 01/12/19 17:10 LRN [id number]) Ankle and Foot Goniometric Range of Motion Ankle and Foot ROM Limitations ROM Limitations Soft Tissue Tightness Muscle Weakness Comments R ankle DF AROM PT-OP-M Strength Start: 01/06/19 16:11 Freq: Status: Active Protocol: Document 01/12/19 12:50 LRN (Rec: 01/12/19 17:10 LRN [id number]) Trunk Strength Trunk Manual Muscle Testing Testing Position Supine Core Stabilization Decreased with MMT of the LE's . Comments Noted pt unable to maintain neutral position of the trunk with movements of the LE's. Hip Strength Hip Manual Muscle Testing Right Flexion (L2) 2+ Poor+ Extension (S1) 2 Poor Abduction 2 Poor Left Flexion (L2) 2+ Poor+ Extension (S1) 2 Poor Abduction 3 Fair Adduction 2 Poor Knee Strength Knee Manual Muscle Testing Right Flexion (S2) 4- Good- Extension (L3) 5 Normal Left Flexion (S2) 4- Good- Extension (L3) 5 Normal Ankle/Foot Strength Ankle and Foot Manual Muscle Testing Right Dorsiflexion (L4) 5 Normal Plantarflexion (S1) 5 Normal Inversion 5 Normal Eversion (S1) 5 Normal Left Dorsiflexion (L4) 3+ Fair+ Plantarflexion (S1) 5 Normal Inversion 5 Normal Eversion (S1) 5 Normal PT-OP-Q Treatments Start: 01/06/19 16:11 Freq: Status: Active Protocol: Document 01/12/19 12:50 LRN (Rec: 01/12/19 17:10 LRN [id number]) Neuro Re-Education Treatment Balance Activities SLS Details Attempted in front of steps and in open Surface Level Standing arm reach Details Reaching forward with R arm Surface Level Standing EO/EC Details Standing feet together & feet apart Surface Level PT-OP-T Assessment and Plan Start: 01/06/19 16:11 Freq: Status: Active Protocol: Document 01/12/19 12:50 LRN (Rec: 01/12/19 17:10 LRN [id number]) Physical Therapy Assessment Rehab Potential Rehabilitation Potential Good Evaluation Complexity Number of Personal Factors/Comorbidities 3 or More Number of Body Systems Impaired 4 or More Clinical Presentation at Evaluation Unstable Impairments Impairments Balance Functional Mobility Gait Pain ROM Strength Transfers Other Concerns Fall Risk High. Assistive device needed and possibly SBA. Age Related Concerns Osteoporosis, COPD, arthritis, effect on family. Barriers to Rehabilitation Ovarian cancer history, surgical histories associated wtih cancer, Osteoporosis, COPD, arthritis, neuropathy of feet, Back pain. Goals Back Pain Impairment Back pain that is hindering her ability to sleep at night, rated 5-9/10 Short Term Goal (STG) Decreased back pain by 50% STG Duration 02/17/19 Snf Goal (LTG) Pt will be able to self manage her back pain at a tolerable level. LTG Duration 04/19/19 Balance Impairment Decreased Balance per LOYD Score of 30/56 Airport Operations Supervisor Goal (LTG) Loyd Score of > 35 for safe ambulation with assistive device. LTG Duration 03/19/19 Gait Impairment Decreased safety with gait per TUG score of 41 sec's without a device Short Term Goal (STG) Improve TUG score of 20 sec's with a device of 34 sec's without a device. STG Duration 02/17/19 Snf Goal (LTG) Improve LE strength and stability with gait as per TUG score of 10 sec's with a device or 24 sec's without a device. LTG Duration 04/19/19 HEP Impairment Lacks self care HEP Airport Operations Supervisor Goal (LTG) Pt will be independent with a self care HEP to manage her pain, and to improve LE strength and gait. LTG Duration 03/19/19 Assessment Summary Assessment Pt presents with poor balance and gait, probably due to LE weakness, decreased core stability and hindered by neuropathy of the feet. The pt appears to have sensation in the feet with soft touch, therefore potential to improve her balance is good. Currently her low back pain appears at this time to be soft tissue related. She has poor tolerance to palpation of the R low back and upper gluteals with soft tissue tightness noted. Her pain may also be mechanical in nature with pain upon palpation of the lumbar spine (L/S) and adjacent areas. Her L/S appears to be in R rotation and pain at spinous process of L4, L5 with PA pressure. Further manual assessment to the low back and hips was deferred until next visit due to time constraints. The pt will benefit from skilled physical therapy for LE/core ROM & strengthening, balance training, STM and manual therapy to decrease back pain and improve mobility and safety with gait. If chemotherapy resumes precautions and protocols would be helpful in adjusting her physical therapy to provide safe treatments to the patient and those around her. Physical Therapy Plan Frequency and Duration Frequency of Treatment 2x/Week Plan of Care Start Date 01/12/19 Plan of Care End Date 03/17/19 Therapeutic Interventions Therapeutic Interventions Balance Training Coordination Training Gait Training Home Exercise Program Manual Therapy Neuromuscular Re-education Patient/Caregiver Education Self-Care/Home Management Soft Tissue Mobilization Therapeutic Activities Therapeutic Exercises Modalities Cold Pack/Ice Massage Hot Packs Next Visit Focus/Plan Next Note Type Treatment Note Next Visit Plan Therapeutic ex's of LE ROM (R ankle DF, hamstrings) & strengthening (hip, core) ex's with assessment of hip ( rotation ROM & strength) and trunk mobility. Check for L/S involvement in R LBP and treatment as appropriate. Initiate low level balance ex' s. End with STM and/or heat/ ice.
--- NOTE | 2019-01-12 16:30 | PT.OPPOC ---
Current Diagnoses Polyneuropathy, unspecified (01/12/19) Unsteadiness on feet (01/12/19) Provider Visit Care Team Role Provider Type Harrison Ott MD Primary Care Provider Physician Specialty: Family Practice Address: [address] [place], [address] Email: MIK Wang Attending Provider Advanced Apartment House Manager Specialty: Internal Medicine Address: [address] [place] [address], [place], [address] Email: Plan Of Care PT-OP-T Assessment and Plan Start: 01/06/19 16:11 Freq: Status: Active Protocol: Document 01/12/19 12:50 LRN (Rec: 01/12/19 17:10 LRN [id number]) Physical Therapy Assessment Rehab Potential Rehabilitation Potential Good Evaluation Complexity Number of Personal Factors/Comorbidities 3 or More Number of Body Systems Impaired 4 or More Clinical Presentation at Evaluation Unstable Impairments Impairments Balance Functional Mobility Gait Pain ROM Strength Transfers Other Concerns Fall Risk High. Assistive device needed and possibly SBA. Age Related Concerns Osteoporosis, COPD, arthritis, effect on family. Barriers to Rehabilitation Ovarian cancer history, surgical histories associated wtih cancer, Osteoporosis, COPD, arthritis, neuropathy of feet, Back pain. Goals Back Pain Impairment Back pain that is hindering her ability to sleep at night, rated 5-9/10 Short Term Goal (STG) Decreased back pain by 50% STG Duration 02/17/19 Nursing Home Goal (LTG) Pt will be able to self manage her back pain at a tolerable level. LTG Duration 04/19/19 Balance Impairment Decreased Balance per LOYD Score of 30/56 Trader Goal (LTG) Loyd Score of > 35 for safe ambulation with assistive device. LTG Duration 03/19/19 Gait Impairment Decreased safety with gait per TUG score of 41 sec's without a device Short Term Goal (STG) Improve TUG score of 20 sec's with a device of 34 sec's without a device. STG Duration 02/17/19 Trader Goal (LTG) Improve LE strength and stability with gait as per TUG score of 10 sec's with a device or 24 sec's without a device. LTG Duration 04/19/19 HEP Impairment Lacks self care HEP Trader Goal (LTG) Pt will be independent with a self care HEP to manage her pain, and to improve LE strength and gait. LTG Duration 03/19/19 Assessment Summary Assessment Pt presents with poor balance and gait, probably due to LE weakness, decreased core stability and hindered by neuropathy of the feet. The pt appears to have sensation in the feet with soft touch, therefore potential to improve her balance is good. Currently her low back pain appears at this time to be soft tissue related. She has poor tolerance to palpation of the R low back and upper gluteals with soft tissue tightness noted. Her pain may also be mechanical in nature with pain upon palpation of the lumbar spine (L/S) and adjacent areas. Her L/S appears to be in R rotation and pain at spinous process of L4, L5 with PA pressure. Further manual assessment to the low back and hips was deferred until next visit due to time constraints. The pt will benefit from skilled physical therapy for LE/core ROM & strengthening, balance training, STM and manual therapy to decrease back pain and improve mobility and safety with gait. If chemotherapy resumes precautions and protocols would be helpful in adjusting her physical therapy to provide safe treatments to the patient and those around her. Physical Therapy Plan Frequency and Duration Frequency of Treatment 2x/Week Plan of Care Start Date 01/12/19 Plan of Care End Date 03/17/19 Therapeutic Interventions Therapeutic Interventions Balance Training Coordination Training Gait Training Home Exercise Program Manual Therapy Neuromuscular Re-education Patient/Caregiver Education Self-Care/Home Management Soft Tissue Mobilization Therapeutic Activities Therapeutic Exercises Modalities Cold Pack/Ice Massage Hot Packs Next Visit Focus/Plan Next Note Type Treatment Note Next Visit Plan Therapeutic ex's of LE ROM (R ankle DF, hamstrings) & strengthening (hip, core) ex's with assessment of hip ( rotation ROM & strength) and trunk mobility. Check for L/S involvement in R LBP and treatment as appropriate. Initiate low level balance ex' s. End with STM and/or heat/ ice. Plan of Care Dates Plan of Care Start Date 01/12/19 Plan of Care End Date 03/17/19 Please Sign and Return: I have reviewed this Plan of Care and certify that the skilled therapy services above are required to meet the patient?s needs. Physician Signature Date Printed Name and Credentials Clinical Instructor Signature Printed Name and Credentials
--- NOTE | 2019-02-03 11:22 | PT.OPDS ---
Current Diagnoses Polyneuropathy, unspecified (01/12/19) Unsteadiness on feet (01/12/19) Provider Visit Care Team Role Provider Type Harrison Ott MD Primary Care Provider Physician Specialty: Family Practice Address: [address] [place], [address] Email: MIK Wang Attending Provider [employer] Specialty: Internal Medicine Address: [address] [place] [address], [place], [address] Email: Visit Number Visit Number 1 Discharge Summary PT-OP-B Current Condition Start: 01/06/19 16:11 Freq: Status: Active Protocol: Document 01/12/19 12:50 LRN (Rec: 01/12/19 14:44 LRN [id number]) Current Condition History of Current Condition Onset Date Balance deficit onset 10 yrs ago, recent worsening in 2018 Current Complaints Poor balance, difficulty walking & R low back pain radiating into the front History of Current Condition Pt reports she has been undergoing chemotherapy for ovarian cancer for the past year. She suffered a fall on 05/15/19 and reports fracturing her pelvis with worsening of balance over the past year. She denies dizziness or vertigo. She states her problem is feeling lightheaded 99% of the time and is taking travel sickness pills to help control the lightheaded feeling. She is seeing her physician 01/17/19 to determine if she will be restarting chemotherapy. She states since undergoing chemotherapy she has now neuropathy of her feet and hands. She reports having surgeries related to her cancer but is not sure what she has had. Records were unavailable to verify. Prior Treatments and Tests CT scan, 05/16/18, indicates nondisplaced R superior pubic ramal fracture. Future Testing and Treatments Planned MRI Treatment Goals Patient/Caregiver Goals Pt goal is to get the evaluation done to proceed with the next step, improve balance to prevent falling and decrease back pain. Prior Functional Status Baseline Function- ADL's Modified Independent Baseline Function- Mobility Modified Independent Baseline Function- Gait Uses walker. Son helps when needed. Baseline Function- Other Son helps as needed. Current Functional Impairments (Reported) Functional Limitations- ADL's Decreased transfer ability, standing, bending, reaching. Functional Limitations- Mobility/Gait Assistive device needed for safe gait. Personal Factors Other Personal Factors That May Effect Currently deciding on Therapy/Recovery restarting chemotherapy for ovarian cancer. Osteoporosis, COPD, severe athlerosclerosis, arthritis Neuropathy of the feet and hands. History of surgeries related to cancer. PT-OP-C Subjective Start: 01/06/19 16:11 Freq: Status: Active Protocol: Document 01/12/19 12:50 LRN (Rec: 01/12/19 17:16 LRN [id number]) Patient Questionnaires ABC- Activity Specific Balance Confidence Scale ABC Score 16.875 ABC Functional Impairment 80 to <100% Impaired (Score 1- 20) Dizziness Handicap Inventory DHI Functional Impairment 20 to 39% Impaired (Score 20- 39) OP-PT Pain Assessment Pain Assessment Grid Paper Pain Assessment Grid Completed Yes Location R Low Back Pain Location Details R Low back radiating into the anterior abdomen Intensity 5 Scale Used Numeric (1 - 10) Description Aching Radiating Location Anterior abdomen Pain Behaviors Pain Behaviors Holding Area Moaning PT-OP-D Balance Start: 01/06/19 16:11 Freq: Status: Active Protocol: Document 01/12/19 12:50 LRN (Rec: 01/12/19 17:10 LRN [id number]) Balance Tests Tamez Balance Test Tamez Balance Test Score 35 Tamez Impairment Rating 20 to 39% Impaired (Score 34- 44) Single Limb Standing Single Limb- Right 0 Single Limb- Left 0 PT-OP-E Functional Tests Start: 01/06/19 16:11 Freq: Status: Active Protocol: Document 01/12/19 12:50 LRN (Rec: 01/12/19 17:10 LRN [id number]) Functional Tests Timed Up and Go (TUG) Score 41 TUG Impairment Rating 100% Impaired (Score 20) Tinetti Balance and Gait Assessment Balance Score 5 Balance Score Impairment Rating 60 to <80% Impaired (Score 4-6 ) PT-OP-G Mobility & Gait Start: 01/06/19 16:11 Freq: Status: Active Protocol: Document 01/12/19 12:50 LRN (Rec: 01/12/19 17:10 LRN [id number]) OP Gait Assessment Gait Gait Assistance Required: Contact Guard Assist Distance (Feet) 100 Able to Maintain Weight Bearing Status Yes During Gait Assistive Devices Assistive Device None Gait Belt Gait Deviations General Gait Pattern Decreased Stride Length Narrow Based Gait Factors Limiting Gait Function Factors Limiting Gait Function Decreased Strength Poor Balance PT-OP-H Neuro Start: 01/06/19 16:11 Freq: Status: Active Protocol: Document 01/12/19 12:50 LRN (Rec: 01/12/19 17:10 LRN [id number]) Sensation Evaluation Comments Summary Comments Pt appeared to have sensation intact in the LE's and feet to soft touch. PT-OP-J Posture/Palpation/Skin Start: 01/06/19 16:11 Freq: Status: Active Protocol: Document 01/12/19 12:50 LRN (Rec: 01/12/19 17:10 LRN [id number]) Palpation Assessment Location R Low Back Palpation Location Right Paraspinals, Quadratus Lumborum, Upper Gluteals Palpation Findings Soft Tissue Tightness Muscle Guarding Tenderness PT-OP-K Range of Motion Start: 01/06/19 16:11 Freq: Status: Active Protocol: Document 01/12/19 12:50 LRN (Rec: 01/12/19 17:10 LRN [id number]) Ankle and Foot Goniometric Range of Motion Ankle and Foot ROM Limitations ROM Limitations Soft Tissue Tightness Muscle Weakness Comments R ankle DF AROM PT-OP-M Strength Start: 01/06/19 16:11 Freq: Status: Active Protocol: Document 01/12/19 12:50 LRN (Rec: 01/12/19 17:10 LRN [id number]) Trunk Strength Trunk Manual Muscle Testing Testing Position Supine Core Stabilization Decreased with MMT of the LE's . Comments Noted pt unable to maintain neutral position of the trunk with movements of the LE's. Hip Strength Hip Manual Muscle Testing Right Flexion (L2) 2+ Poor+ Extension (S1) 2 Poor Abduction 2 Poor Left Flexion (L2) 2+ Poor+ Extension (S1) 2 Poor Abduction 3 Fair Adduction 2 Poor Knee Strength Knee Manual Muscle Testing Right Flexion (S2) 4- Good- Extension (L3) 5 Normal Left Flexion (S2) 4- Good- Extension (L3) 5 Normal Ankle/Foot Strength Ankle and Foot Manual Muscle Testing Right Dorsiflexion (L4) 5 Normal Plantarflexion (S1) 5 Normal Inversion 5 Normal Eversion (S1) 5 Normal Left Dorsiflexion (L4) 3+ Fair+ Plantarflexion (S1) 5 Normal Inversion 5 Normal Eversion (S1) 5 Normal PT-OP-T Assessment and Plan Start: 01/06/19 16:11 Freq: Status: Active Protocol: Document 02/03/19 11:21 LRN (Rec: 02/03/19 11:22 LRN [id number]) Physical Therapy Plan Discharge Physical Therapy Discharge Reasons Patient Request Discharge Comments Notified 01/20/19 that pt requested DC due to starting chemo treatments.
== END 2019-01-12 13:24 | disposition home or self-care (01) ==
LOC: PHYS 12:24
PROVIDERS: PCP Family Medicine; Visit Provider Nurse Practitioner Gerontology
DX: R26.81 Unsteadiness on feet (principal); G62.9 Polyneuropathy, unspecified
CPT/HCPCS: 97112; 97163

== ENCOUNTER → 2019-01-25 13:20 | Outpatient (CLI) | payer MEDICARE, OTHER, SELFPAY ==
--- NOTE | 2019-01-25 13:40 | DI.MRI.S_ITS ---
PROCEDURE: MR BRAIN (IAC) WWO CON INDICATIONS: Malignant neoplasm of unspecified ovary. Rule out metastases. TECHNIQUE: Noncontrast sagittal T1 spin echo, axial FLAIR, axial gradient echo, axial diffusion and ADC through the brain. Axial thin-slice 3D CISS, coronal TruFISP, axial T1 spin echo with fat saturation through the internal auditory canals. After the administration of contrast, thin slice axial and coronal T1 spin echo with fat saturation through the internal auditory canals, and axial T1 spin echo with fat saturation through the brain. COMPARISON: [facility], [place], PET NECK TO MID THIGH, 08/03/2018, 13:42. FINDINGS: Image quality: Excellent. Cerebellopontine angles: No cerebellopontine angle masses. Inner ear structures appear normally formed. No suspicious enhancement in the internal auditory canal or along the course of the 7th cranial nerve. CSF spaces: Ventricles are dilated but symmetrical in size and shape. No extra-axial fluid collections. Basal cisterns are patent. Brain: No intracranial bleeds or mass effects. There is moderate to severe cerebral volume loss. Moderate periventricular white matter chronic small vessel ischemic changes are present. No abnormal intracranial enhancement. Diffusion weighted images demonstrate no acute ischemic insults. Brainstem appears normal. Normal intravascular flow voids are present. Skull and face: Calvarial marrow signal is normal. Orbits appear normal. Sinuses: Sinuses and mastoids are clear. IMPRESSION: 1. No evidence for intracranial metastases. 2. Cerebral volume loss and chronic microvascular ischemic changes. 3. Ventricular dilation may be secondary to central atrophy or normal pressure hydrocephalus. Recommend clinical correlation. Dictated by: Torito Wei M.D. on 01/25/2019 at 15:31 Approved by: Torito Wei M.D. on 01/25/2019 at 17:25
== END ==
PROVIDERS: PCP Family Medicine
DX: C56.9 Malignant neoplasm of unspecified ovary (principal)
CPT/HCPCS: 70553; A9579

== ENCOUNTER 2019-01-27 08:13 | Day surgery (SDC) | payer MEDICARE, OTHER, SELFPAY ==
--- NOTE | 2019-01-25 10:05 | ONC.SCHED ---
Robin Ely in DI: Nurse reviewed meds and instructed us to inform patient to stop Desyrel 9 hours prior to lumbar puncture. I called the patient and left her a message with this information.
[2019-01-27] VITALS (11 sets, daily range): BP systolic 127–172; BP diastolic 59–82; PULSE 65–80; RESP 15–18; TEMP 36.3–36.8; O2SAT 94–97; BMI 22.1
--- NOTE | 2019-01-27 09:18 | DI.RAD.S_ITS ---
PROCEDURE: FL GUIDED LUMBAR PUNCTURE LP INDICATIONS: lp TECHNIQUE: The indications, alternatives, benefits, risks, and complications were explained to the patient. Written informed consent was obtained and placed in the chart. The patient was placed in a prone position on the fluoroscopy table, and a level was chosen for percutaneous access under fluoroscopic guidance. The site was prepped and draped in a sterile fashion. After local anaesthetic, a spinal needle was then used to enter the intrathecal space, with return of cerebrospinal fluid. After obtaining sufficient fluid, the needle was then withdrawn, and a bandage applied to the puncture site. FINDINGS: Puncture level: L3-L4 Needle: 22 gauge spinal needle. Opening pressure: 14.5 cm H2O CSF volume and description: 10 cc of clear CSF was obtained and sent to the laboratory for analysis Medications: 1% lidocaine for anaesthesia. Complications: None Laboratories: As ordered by referring clinician. IMPRESSION: Successful fluoroscopically guided lumbar puncture. Dictated by: Eleno Martinez M.D. on 01/27/2019 at 12:07 Approved by: Eleno Martinez M.D. on 01/27/2019 at 12:08
--- NOTE | 2019-01-27 10:45 | SUR.PHASEII ---
1034 Received patient from DI; pleasant, comfortable,only request was for coffee (given). Report given to Katherin Fox Rn; meal ordered.
[2019-01-27 11:07] LABS: Glucose CSF 55 mg/dL (40-70); Total Protein CSF 48 mg/dL (12-60)
[2019-01-27 11:16] LABS: Appearance CSF Clear (Clear); CSF Tube Number 3; CSF Tube Volume 3.0 mL; Color CSF Colorless (Colorless); Red Blood Cell CSF 20 RBC /uL; White Blood Cell CSF 0 MONO/uL (0-5)
--- NOTE | 2019-01-27 12:01 | SUR.PREOP ---
0900: after numbing the pt's skin over port site with 0.2ml of 1% lidocaine, I accessed the pt's port according to policy and procedure. I got a positive blood return then flushed with 10cc normal saline and 5cc 100unit/ml heparin. Pt tolerated procedure well, stating I didn't feel a thing.
== END 2019-01-27 12:35 | disposition home or self-care (01) ==
LOC: OR 08:17
PROVIDERS: PCP Family Medicine
PROC: 009U3ZZ Drainage of Spinal Canal, Percutaneous Approach (ICD-10-PCS; principal; 2019-01-27 10:00)
DX: G91.2 (Idiopathic) normal pressure hydrocephalus (principal); C56.9 Malignant neoplasm of unspecified ovary; G47.33 Obstructive sleep apnea (adult) (pediatric); I10 Essential (primary) hypertension; I25.10 Atherosclerotic heart disease of native coronary artery without angina pectoris; F41.9 Anxiety disorder, unspecified; J44.9 Chronic obstructive pulmonary disease, unspecified
CPT/HCPCS: 62270; 76000; 82945; 84157; 89051

== ENCOUNTER 2019-02-19 10:33 | Emergency (ER) | payer MEDICARE, OTHER, SELFPAY ==
[2019-02-19 11:07] VITALS: BP 133/72; PULSE 101; RESP 18; TEMP 36.2; O2SAT 96; BMI 20.4
[2019-02-19] MEDS: SODIUM CHLORIDE 0.9% 1,000 ML 1000 ML IV (13:00)
--- NOTE | 2019-02-19 13:22 | ED.NAVMDI ---
HPI - Nausea/Vomiting/Diarrhea General Chief complaint: Nausea/Vomiting/Diarrhea Stated complaint: Cancer patient, can't keep food down Time Seen by Provider: 02/19/19 12:02 Source: patient and family Mode of arrival: ambulatory Limitations: no limitations History of Present Illness HPI Narrative: Patient comes emergency department complaining of nausea and vomiting for the last approximately week. Patient has a longstanding history of ovarian cancer which has recently recurred, and patient was started on a new chemotherapeutic agent 2 days before symptoms began. Patient states she has a history of these kinds of symptoms with prior chemotherapy. Patient states that it is typical for her to feel okay for a few days after the chemo, and then began having severe nausea and vomiting. Patient states she has not been able to keep down her pain medication, and so her pain level is also higher than usual. She states that the Zofran has not been controlling her symptoms this time, though usually works pretty well for her nausea. Patient denies fevers or chills. She states that her symptoms are very typical of previous episodes. Patient denies urinary complaints. No diarrhea. Patient has had no chest pain shortness of breath. patient states that her various children come and stay with her when she is not feeling well, though she does generally live at home on her own. Related Data Home Medications Medication Instructions Recorded Confirmed cholecalciferol (vitamin D3) 2,000 iu PO QDAY #0 09/16/17 02/15/19 [Vitamin D3] cyanocobalamin (vitamin B-12) 500 mcg PO QDAY #0 09/16/17 02/15/19 [Vitamin B-12] Cbd Tincture 1 dose PO DAILY 05/16/18 02/15/19 lorazepam 0.25 mg PO BID-TID PRN 08/09/18 02/15/19 alprazolam 5 mg PO PRN PRN 01/27/19 02/15/19 Previous Rx's Medication Instructions Recorded ondansetron [Zofran ODT] 4 mg SUBLINGUAL Q6HP PRN #30 odt 01/04/18 trazodone 25 mg PO DAILY PRN #30 tab 11/21/18 alprazolam 0.25 mg PO BID PRN #60 tab 01/05/19 ondansetron HCl [Zofran] 4 mg PO Q6-8H PRN #30 tab 01/05/19 morphine [MS Contin] 15 mg PO Q12H 30 Days #60 tab 02/07/19 oxycodone 10 mg PO Q4-6H PRN #60 tab 02/07/[address] Q12H PRN #12 each 02/19/19 Allergies Allergy/AdvReac Type Severity Reaction Status Date / Time carboplatin Allergy Severe SEVERE SOB Verified 02/19/19 11:07 Sulfa (Sulfonamide Allergy Intermediate RASH Verified 02/19/19 11:07 Antibiotics) Review of Systems Constitutional Denies chills, Denies fever(s), Denies lethargy and Denies weakness Eyes Denies change in vision, Denies eye discharge, Denies irritation and Denies loss of vision ENT Ears, Nose, Mouth, and Throat: Denies change in voice, Denies neck pain and Denies sore throat Cardiovascular Denies chest pain, Denies irregular heart rhythm, Denies lightheadedness, Denies palpitations, Denies dyspnea, Denies dyspnea on exertion and Denies orthopnea Respiratory Denies cough, Denies dyspnea, Denies dyspnea on exertion and Denies wheezing Gastrointestinal Gastrointestinal: Reports abdominal pain, Denies change in bowel habits, Denies diarrhea, Reports nausea and Reports vomiting Genitourinary Denies hematuria, Denies flank pain, Denies urinary incontinence and Denies urinary urgency Musculoskeletal Denies neck pain Integumentary/Breasts Denies pruritus, Denies erythema, Denies rash and Denies wounds Neurologic Denies confusion, Denies loss of vision and Denies weakness Psychiatric Denies anxiety, Denies confusion, Denies depression, Denies homicidal ideation and Denies suicidal ideation Endocrine Denies palpitations Hematologic/Lymphatic Denies easy bruising Allergic/Immunologic Denies wheezing [facility] Medical History (Updated 02/21/19 @ 14:25 by Grady Diez MD) Normal pressure hydrocephalus (Acute) Ovarian cancer (Acute) Ovarian cancer in remission (Acute) Spinal stenosis in cervical region (Acute) Cervical spondylosis with radiculopathy (Acute) Back pain (Acute) Chest pain (Acute) Ovarian cancer (Acute) Exam Initial Vital Signs Initial Vital Signs: Vital Signs Temperature 97.2 F L 02/19/19 11:07 Pulse Rate 101 H 02/19/19 11:07 Respiratory Rate 18 02/19/19 11:07 Blood Pressure 133/72 02/19/19 11:07 Pulse Oximetry 96 02/19/19 11:07 Const General: cooperative and well developed Nutritional Appearance: well nourished Orientation: alert, awake, oriented x3 and not confused [facility] Head: normocephalic and atraumatic Ears: external ears normal Nose: external nose normal and No nasal discharge Face and sinus: face symmetric and No dry mucous membranes Mouth: oral mucosae normal and moist mucous membranes Teeth and gingiva: dentition normal Eyes General: appearance normal, both eyes and all related structures Eyelids: eyelids normal Conjunctivae: conjunctivae normal Sclera: sclerae normal Pupils: PERRL EOM: EOM intact bilaterally Neck Neck: normal visual inspection, trachea midline, No lymphadenopathy, No midline deformity and No JVD Lymphatic: No lymphedema Chest Chest: normal inspection of the chest Resp Effort & Inspection: normal respiratory effort, able to speak in complete sentences, no respiratory distress and no use of accessory muscles Auscultation: clear to auscultation bilaterally, no rales, no rhonchi and no wheezes Cardio Rate: regular rate Rhythm: regular rhythm Heart Sounds: no click, no gallops, no murmurs and no rubs Pulses: normal peripheral pulses GI Inspection: non-distended Palpation: soft, no hepatosplenomegaly, No guarding, No pulsatile mass and tender (Bilateral lower quadrants, no rebound) Back/Spine/Pelvis Back: No CVA tenderness Cervical Spine: cervical ROM normal and No pain with cervical ROM Thoracic/Lumbar Spine: thoracic and lumbar spine normal to inspection Skin General: no rashes or lesions noted, No jaundice and No petechiae Neuro General: alert, oriented x3, gait normal and no focal motor deficits Speech: speech normal Extrem General: full ROM, no clubbing, cyanosis or edema, no pedal edema and no calf tenderness Psych Appearance: well kempt Mental Status: mental status grossly normal Attitude: cooperative Thought Content: normal and suicidality Judgment: judgment good Course Course Narrative: The patient was worked up with laboratory studies, and treated with IV fluids, analgesics, and antiemetics in the emergency department. On re-evaluation, patient was found to be feeling much much better, and I felt she was stable for discharge home. The patient family were comfortable with this. I have given her prescriptions for medications to use at home to help with symptomatic relief. We have discussed the usual indications for return, as well as symptomatic management as an outpatient. Orders Ordered: Discontinued Medications Hydromorphone HCl (Dilaudid) 2 mg IV NOW ONE Stop: 02/19/19 13:23 Last Admin: 02/19/19 13:46 Dose: 2 mg Sodium Chloride (Normal Saline 0.9%) 1,000 mls @ 1,000 mls/hr IV BOLUS ONE Stop: 02/19/19 14:29 Last Infusion: 02/19/19 14:52 Dose: 1,000 mls/hr Admin: 02/19/19 13:00 Dose: 1,000 mls/hr Prochlorperazine (Compazine) 10 mg IV NOW ONE Stop: 02/19/19 13:23 Last Admin: 02/19/19 13:46 Dose: 10 mg Vital Signs - 8 hr 02/19/19 11:07 Temperature 97.2 F L Pulse Rate 101 H Respiratory Rate 18 Blood Pressure 133/72 Pulse Oximetry 96 MDM - Nausea/Vomiting/Diarrhea Medical Records Attestation: I reviewed the patient's medical records. Lab Data Attestation: I reviewed the patient's lab results. Result diagrams: 02/19/19 12:30 02/19/19 12:30 Lab Results 02/19/19 02/19/19 Range/Units 12:30 12:30 WBC 1.8 L* (4.5-11.0) X10^3/uL RBC 5.20 (4.0-5.2) X10^6/uL Hgb 14.5 (12.0-16.0) g/dL Hct 42.8 (36-46) % MCV 82.4 (80-100) fL MCH 27.9 (26-34) PG MCHC 33.8 (30-36) % RDW 13.7 (11.6-14.8) % Plt Count 270 (150-400) X10^3/uL Neut % (Auto) Not Reportable Lymph % (Auto) Not Reportable [place] % (Auto) Not Reportable Eos % (Auto) Not Reportable Baso % (Auto) Not Reportable Lymph # (Auto) Not Reportable [place] # (Auto) Not Reportable Baso # (Auto) Not Reportable Total Counted 50 Seg Neutrophils % 58.0 (38-70) % Band Neutrophils % 6.0 (3-7) % Lymphocytes % (Manual) 20.0 L (25-45) % Atypical Lymphs % 8.0 H ( - 0) % Monocytes % (Manual) 2.0 (2-11) % Eosinophils % (Manual) 2.0 (2-4) % Metamyelocytes % 4.0 H (-0) % Neutrophils # (Manual) 1152 L (3055-4972) /uL RBC Morphology Normal morphology Sodium 137 (137-145) mmol/L Potassium 4.4 (3.4-5.1) mmol/L Chloride 94 L (98-107) mmol/L Carbon Dioxide 30 (22-32) mmol/L BUN 22 H (7-17) mg/dL Creatinine 0.90 (0.52-1.04) mg/dL Estimated GFR > 60.0 (>60) mL/min BUN/Creatinine Ratio 24.4 H (6-22) Glucose 134 H (80-110) mg/dL Calcium 9.6 (8.4-10.2) mg/dL Total Bilirubin 0.7 (0.2-1.3) mg/dL AST 21 (14-36) IU/L ALT 14 (9-52) IU/L Alkaline Phosphatase 64 (38-126) U/L Total Protein 7.3 (6.3-8.2) g/dL Albumin 4.0 (3.5-5.0) g/dL Globulin 3.3 (1.7-4.1) g/dL Albumin/Globulin Ratio 1.2 (1.0-2.8) Discharge Plan Departure Patient Disposition: Home Clinical Impression: Acute dehydration Vomiting Qualifiers: Vomiting type: bilious vomiting Nausea presence: with nausea Qualified Code(s): R11.14 - Bilious vomiting Abdominal pain Qualifiers: Abdominal location: lower abdomen, unspecified Qualified Code(s): R10.30 - Lower abdominal pain, unspecified Discharge Date/Time: 02/19/19 15:45 Interventions: ED Discharge Assessment Last Done: 02/19/19 15:07 Instructions: DI for Dehydration -- Adult, DI for Vomiting -- Adult Activity Restrictions/Additional Instructions: Your labs were unremarkable for any significant abnormalities. Your vomiting is most likely reaction to your chemotherapy. Please speak with your oncologist about whether this chemotherapy agent is the right choice for you. You may use the Zofran and the Compazine, as needed for nausea. Please continue your usual home medications for pain. Prescriptions: New prochlorperazine 25 mg suppository [address] Q12H PRN (Reason: nausea and vomiting) Qty: 12 RF: 2 No Action cyanocobalamin (vitamin B-12) [Vitamin B-12] 500 MCG tablet 500 mcg PO QDAY Qty: 0 RF: 0 cholecalciferol (vitamin D3) [Vitamin D3] 2,000 UNIT capsule 2,000 iu PO QDAY Qty: 0 RF: 0 ondansetron [Zofran ODT] 4 MG tablet,disintegrating 4 mg Sublingual Q6HP PRNQty: 30 RF: 0 lorazepam 0.5 mg Tablet 0.25 mg PO BID-TID PRN (Reason: Anxiety) RF: 0 trazodone 50 mg Tablet 25 mg PO DAILY PRN (Reason: Insomnia) Qty: 30 RF: 1 alprazolam 0.25 mg Tablet 0.25 mg PO BID PRN (Reason: Anxiety) Qty: 60 RF: 0 ondansetron HCl [Zofran] 4 mg Tablet 4 mg PO Q6-8H PRN (Reason: Nausea) Qty: 30 RF: 2 oxycodone 10 mg Tablet 10 mg PO Q4-6H PRN (Reason: cancer pain) Qty: 60 RF: 0 morphine [MS Contin] 15 mg Tablet Extended Release 15 mg PO Q12H 30 Days Qty: 60 RF: 0 Cbd Tincture 1 dose PO DAILY RF: 0 alprazolam 2 mg Tablet 5 mg PO PRN PRN (Reason: Anxiety) RF: 0 Referrals: Harrison Ott MD [Primary Care Provider] -
[2019-02-19 13:30] VITALS: BP 187/65; PULSE 72; RESP 15; O2SAT 92
[2019-02-19 13:46] LABS: Alanine Aminotransferase 14 IU/L (9-52); Albumin Globulin Ratio 1.2 (1.0-2.8); Alkaline Phosphatase 64 U/L (38-126); Aspartate Aminotransferase 21 IU/L (14-36); BUN Creatinine Ratio 24.4 (6-22); Bilirubin Total 0.7 mg/dL (0.2-1.3); Blood Urea Nitrogen 22 mg/dL (7-17); Calcium 9.6 mg/dL (8.4-10.2); Carbon Dioxide 30 mmol/L (22-32); Chloride 94 mmol/L (98-107); Estimated Glomerular Filt Rate > 60.0 mL/min (>60); Globulin 3.3 g/dL (1.7-4.1); Glucose 134 mg/dL (80-110); HEMOLYSIS < 15 (0-50); Potassium 4.4 mmol/L (3.4-5.1); Sodium 137 mmol/L (137-145); Total Protein 7.3 g/dL (6.3-8.2)
[2019-02-19] MEDS: PROCHLORPERAZINE 10 MG/2 ML VIAL IV (13:46)
[2019-02-19] MEDS: HYDROMORPHONE 1 MG INJ 2 MG IV (13:46)
[2019-02-19 13:48] LABS: Hematocrit 42.8 % (36-46); Hemoglobin 14.5 g/dL (12.0-16.0); Mean Corpuscular HGB Conc 33.8 % (30-36); Mean Corpuscular Hemoglobin 27.9 PG (26-34); Mean Corpuscular Volume 82.4 fL (80-100); Platelet Count 270 X10^3/uL (150-400); Red Cell Distribution Width 13.7 % (11.6-14.8)
[2019-02-19 13:49] LABS: White Blood Cell Count 1.8 X10^3/uL (4.5-11.0)
[2019-02-19 13:50] LABS: Add Manual Diff / Slide Review YES
[2019-02-19 14:23] LABS: Neutrophils Absolute Manual 1152 /uL (3000-5900); Total Cells Counted 50
[2019-02-19 14:25] LABS: RBC Morphology Normal Morphology
[2019-02-19 14:30] VITALS: BP 147/59; PULSE 73; O2SAT 98
[2019-02-19 15:07] VITALS: BP 147/116; PULSE 70; RESP 17; O2SAT 94
== END 2019-02-19 15:45 | disposition home or self-care (01) ==
PROVIDERS: Emergency Provider Emergency Medicine; PCP Family Medicine
DX: E86.0 Dehydration (principal); R11.14 Bilious vomiting; R10.30 Lower abdominal pain, unspecified; C56.9 Malignant neoplasm of unspecified ovary
CPT/HCPCS: 80053; 85025; 96361; 96374; 96375; 99283; 99284; J0780; J1170

== ENCOUNTER → 2019-02-21 14:53 | Outpatient (CLI) | payer MEDICARE, OTHER, SELFPAY ==
--- NOTE | 2019-02-21 14:55 | DI.RAD.S_ITS ---
PROCEDURE: XR ACUTE ABDOMEN SERIES INDICATIONS: uncontrolled nause and vomiting x 4 days TECHNIQUE: One view chest and two views of the abdomen were acquired. COMPARISON: None. FINDINGS: Surgical changes and devices: Prior low cervical anterior fusion plate noted, surgical clips over the midabdomen and lower left abdomen/pelvis. There is a Port-A-Cath from right subclavian approach extending into the distal SVC. Chest: Lungs are clear but lung volumes are large consistent with COPD. Heart size is normal. No pleural effusions. No pneumoperitoneum. Abdomen: Bowel gas pattern is normal except for moderate colonic obstipation. No suspicious calcifications. Visualized solid organ contours appear normal. Bones: No suspicious bony lesions. IMPRESSION: Postsurgical changes as discussed, Port-A-Cath in normal position, no sign of intestinal obstruction or perforation but there is generalized colonic obstipation slightly greater on the right than the left. Dictated by: Dwayne Galdamez M.D. on 02/21/2019 at 15:39 Approved by: Dwayne Galdamez M.D. on 02/21/2019 at 15:41
== END ==
PROVIDERS: PCP Family Medicine
DX: C56.9 Malignant neoplasm of unspecified ovary (principal); R11.2 Nausea with vomiting, unspecified
CPT/HCPCS: 74022

== ENCOUNTER 2019-02-22 08:22 | Emergency (ER) | payer MEDICARE, OTHER, SELFPAY ==
[2019-02-22 08:33] VITALS: BP 148/45; PULSE 78; RESP 18; TEMP 36.7; O2SAT 96
--- NOTE | 2019-02-22 09:09 | DI.RAD.S_ITS ---
PROCEDURE: XR ABDOMEN MIN 2V INDICATIONS: abdominal pain TECHNIQUE: 2 views of the abdomen were acquired. COMPARISON: [facility], , ABDOMEN 1 VIEW, 05/03/2017, 10:02. [facility], CR, ABDOMEN 1 VIEW, 08/05/2011, 10:29. FINDINGS: Surgical changes and devices: Multiple clips are overlying the abdomen and pelvis. Bowel: No pneumoperitoneum. The bowel gas pattern is normal. Prominent stool is present. Soft tissues: No masses; visualized solid organ contours appear normal in size. No suspicious abdominal calcifications. Bones: No suspicious bony abnormalities. IMPRESSION: Prominent stool consistent with constipation. No obstruction. Dictated by: Aracely Rueda M.D. on 02/22/2019 at 9:44 Approved by: Aracely Rueda M.D. on 02/22/2019 at 9:45
--- NOTE | 2019-02-22 09:12 | ED.ABDPAIN ---
HPI - Abdominal Pain General Chief Complaint: Abdominal Pain Stated Complaint: bowel blockage, dehydrated Time Seen by Provider: 02/22/19 08:49 Source: patient Mode of arrival: ambulatory Limitations: no limitations History of Present Illness HPI narrative: Patient is a 78-year-old female currently be trended with chemotherapy for ovarian cancer. She actually had chemotherapy 1 week ago since then she has had vomiting. She was sent to the ER for further evaluation for possible bowel obstruction. She actually had an x-ray done yesterday which showed obstipation she did not come in yesterday but was having worsening cramping today so she came to the ER for further evaluation. She denies any fever past. She is also actually seen evaluated here in the ED on 02/19/2019 MD complaint: abdominal pain Onset (ago): day(s) Related Data Home Medications Medication Instructions Recorded Confirmed Cbd Tincture 1 dose PO DAILY 05/16/18 02/22/19 alprazolam 0.25 - 0.5 mg PO Q12H PRN 02/22/19 02/22/19 docusate sodium [Colace] 100 mg PO BID 02/22/19 02/22/19 trazodone 25 mg PO BEDTIME 02/22/19 02/22/19 Previous Rx's Medication Instructions Recorded ondansetron HCl [Zofran] 4 mg PO Q6-8H PRN #30 tab 01/05/19 morphine [MS Contin] 15 mg PO Q12H 30 Days #60 tab 02/07/19 prochlorperazine 25 mg [place] Q12H PRN #12 each 02/19/19 oxycodone 10 mg PO Q4-6H PRN #60 tab 02/21/19 Allergies Allergy/AdvReac Type Severity Reaction Status Date / Time carboplatin Allergy Severe SEVERE SOB Verified 02/19/19 11:07 Sulfa (Sulfonamide Allergy Intermediate RASH Verified 02/19/19 11:07 Antibiotics) Review of Systems Review of Systems ROS Unobtainable: All systems reviewed & are unremarkable except as noted in HPI and below Constitutional Denies chills, Denies fever(s), Denies lethargy and Denies weakness Eyes Denies change in vision, Denies eye discharge, Denies irritation and Denies loss of vision Cardiovascular Denies chest pain, Denies irregular heart rhythm, Denies lightheadedness, Denies palpitations, Denies dyspnea, Denies dyspnea on exertion and Denies orthopnea Respiratory Denies cough, Denies dyspnea, Denies dyspnea on exertion and Denies wheezing Gastrointestinal Gastrointestinal: Reports as per HPI, Reports abdominal pain, Denies diarrhea, Reports nausea and Reports vomiting Genitourinary Denies hematuria, Denies flank pain, Denies urinary incontinence and Denies urinary urgency Musculoskeletal Denies back pain, Denies muscle weakness, Denies numbness and Denies tingling Integumentary/Breasts Denies pruritus, Denies erythema, Denies rash and Denies wounds Neurologic Denies loss of vision, Denies numbness, Denies tingling and Denies weakness Endocrine Denies palpitations Allergic/Immunologic Denies wheezing [facility] Medical History Normal pressure hydrocephalus (Acute) Ovarian cancer (Acute) Ovarian cancer in remission (Acute) Spinal stenosis in cervical region (Acute) Cervical spondylosis with radiculopathy (Acute) Back pain (Acute) Chest pain (Acute) Ovarian cancer (Acute) Social History household members: family Smoking Status: Current every day smoker Social History household members: family Smoking Status: Current every day smoker Exam Initial Vital Signs Initial Vital Signs: Vital Signs Temperature 98.1 F 02/22/19 08:33 Pulse Rate 78 02/22/19 08:33 Respiratory Rate 18 02/22/19 08:33 Blood Pressure 148/45 H 02/22/19 08:33 Pulse Oximetry 96 02/22/19 08:33 GENERAL: Alert elderly female no acute distress HEENT: Head atraumatic,EOMI, pupils reactive, face symmetric, moist mucous membranes CARDIOVASCULAR: Regular rate and rhythm without murmurs, rubs or gallops. RESPIRATORY: Breath sounds equal bilaterally, no wheezes rales or rhonchi. ABDOMEN: Soft, no distension mild lower abdominal pain no guarding no rebound EXTREMITIES: Normal range of motion, no clubbing or edema. Neurovascularly intact NEUROLOGICAL: Alert and oriented x4.Normal gait and speech. Cranial nerves II through XII grossly intact. SKIN: Warm, dry, no laceration, no petechiae, no rashes or lesions. Course Orders Ordered: Discontinued Medications Sodium Chloride (Normal Saline 0.9%) 1,000 mls @ 1,000 mls/hr IV CONT MARCIA Last Infusion: 02/22/19 10:58 Dose: 0 mls/hr Admin: 02/22/19 09:47 Dose: 1,000 mls/hr Morphine Sulfate (Morphine) 4 mg IV NOW ONE Stop: 02/22/19 09:53 Last Admin: 02/22/19 09:56 Dose: 4 mg Ondansetron HCl (Zofran) 4 mg IV NOW ONE Stop: 02/22/19 09:53 Last Admin: 02/22/19 09:56 Dose: 4 mg Vital Signs - 8 hr 02/22/19 14:06 Pulse Rate 74 Blood Pressure [Left Arm] 183/63 H Pulse Oximetry 96 MDM - Abdominal Pain Lab Data Attestation: I reviewed the patient's lab results. Result diagrams: 02/22/19 09:35 02/22/19 09:35 Lab Results 02/22/19 02/22/19 Range/Units 09:35 09:35 WBC 2.8 L (4.5-11.0) X10^3/uL RBC 4.85 (4.0-5.2) X10^6/uL Hgb 13.1 (12.0-16.0) g/dL Hct 40.3 (36-46) % MCV 83.0 (80-100) fL MCH 27.1 (26-34) PG MCHC 32.6 (30-36) % RDW 13.2 (11.6-14.8) % Plt Count 247 (150-400) X10^3/uL Neut % (Auto) 68.8 (50-75) % Lymph % (Auto) 20.2 L (25-40) % [place] % (Auto) 6.9 (3-14) % Eos % (Auto) 3.2 (2-4) % Baso % (Auto) 0.9 (0-2) % Neut # (Auto) 1900 (7065-6044) /uL Lymph # (Auto) 600 L (5674-0793) /uL [place] # (Auto) 200 (0-900) /uL Eos # (Auto) 100 (0-450) /uL Baso # (Auto) 0 (0-100) /uL Sodium 136 L (137-145) mmol/L Potassium 3.9 (3.4-5.1) mmol/L Chloride 100 (98-107) mmol/L Carbon Dioxide 27 (22-32) mmol/L BUN 13 (7-17) mg/dL Creatinine 0.70 (0.52-1.04) mg/dL Estimated GFR > 60.0 (>60) mL/min BUN/Creatinine Ratio 18.6 (6-22) Glucose 98 (80-110) mg/dL Calcium 8.5 (8.4-10.2) mg/dL Total Bilirubin 0.4 (0.2-1.3) mg/dL AST 16 (14-36) IU/L ALT 17 (9-52) IU/L Alkaline Phosphatase 54 (38-126) U/L Total Protein 6.5 (6.3-8.2) g/dL Albumin 3.5 (3.5-5.0) g/dL Globulin 3.0 (1.7-4.1) g/dL Albumin/Globulin Ratio 1.2 (1.0-2.8) Lipase 36 (23-300) U/L Point of care testing: Urine Dip Bedside Urine Glucose Negative Bedside Urine Bilirubin - Negative Bedside Urine Ketone ++ 40 Urine Specific [place] 1.020 Bedside Urine Occult Blood - Negative Bedside Urine pH 6.0 Bedside Urine Protein - Negative Bedside Urine Urobilinogen +/- 1mg Bedside Urine Nitrite - Negative Bedside Urine Leukocytes - Negative Esterase Imaging Data Abdominal x-ray: Radiologist's impression: PROCEDURE: XR ABDOMEN MIN 2V INDICATIONS: abdominal pain TECHNIQUE: 2 views of the abdomen were acquired. COMPARISON: [facility], , ABDOMEN 1 VIEW, 05/03/2017, 10:02. [facility], CR, ABDOMEN 1 VIEW, 08/05/2011, 10:29. FINDINGS: Surgical changes and devices: Multiple clips are overlying the abdomen and pelvis. Bowel: No pneumoperitoneum. The bowel gas pattern is normal. Prominent stool is present. Soft tissues: No masses; visualized solid organ contours appear normal in size. No suspicious abdominal calcifications. Bones: No suspicious bony abnormalities. IMPRESSION: Prominent stool consistent with constipation. No obstruction. Dictated by: Aracely Rueda M.D. on 02/22/2019 at 9:44 CT scan - abdomen: Radiologist's impression: [place] report 1. Fluid-filled borderline prominent proximal small bowel loops with mucosal enhancement is highly suggestive of enteritis. Focal ileus within proximal small bowel may be present. No complete obstruction. 2. Probable colonic constipation 3. Colonic diverticulosis without diverticulitis. 4. Hypodense mass and mildly enlarged mesenteric retroperitoneal lymph nodes may not have significantly changed remains suspicious for neoplasm with lymphatic metastasis 5. No ascites or drainable fluid collection 6. A left adrenal nodule lesion may be metastatic in nature. This is unchanged 7. Small to moderate sized hiatal hernia 8. Mild intrahepatic or extrahepatic biliary dilatation is similar to prior studies and of doubtful thick significance. 9. Severe aortic and iliac artery atherosclerosis borderline aneurysmal dilatation of lower abdomen aorta just above the bifurcation. 10 right-sided hydronephrosis and hydroureter is felt to be exaggerated by distended urinary bladder. No renal or ureteral calculi are evident MDM Narrative Medical decision making narrative: Patient has now had 2 abdominal x-rays which do not show any obstruction. However due to her history of cancer she likely does need a CT she has not had 1 since December. Unfortunately [facility] CT scanner is down patient will be transported to [facility] for a CT scan. The patient and family agreeable. The patient returned without any complications she is tolerating oral fluids. At this time recommend outpatient follow-up with Oncology and PCP. She feels ready and able to go home. Discharge Plan Departure Patient Disposition: Home Clinical Impression: Gastroenteritis Vomiting Qualifiers: Vomiting type: unspecified Vomiting Intractability: non-intractable Nausea presence: with nausea Qualified Code(s): R11.2 - Nausea with vomiting, unspecified Discharge Date/Time: 02/22/19 15:02 Interventions: ED Discharge Assessment Last Done: 02/22/19 15:02 Instructions: DI for Abdominal Pain-Adult Activity Restrictions/Additional Instructions: *You have been diagnosed with abdominal pain, vomiting *What to do: At this time increase of fluid intake as tolerated try clear liquids and may advance. May consider palliative care is done with chemotherapy *Continue to take medications as directed *Follow up with your primary care provider in 2-3 days *Return to ER if you should have increasing pain, persistent vomiting inability keep down fluids or any new, worsening or concerning symptoms Prescriptions: No Action ondansetron HCl [Zofran] 4 mg Tablet 4 mg PO Q6-8H PRN (Reason: Nausea) Qty: 30 RF: 2 morphine [MS Contin] 15 mg Tablet Extended Release 15 mg PO Q12H 30 Days Qty: 60 RF: 0 oxycodone 10 mg Tablet 10 mg PO Q4-6H PRN (Reason: cancer pain) Qty: 60 RF: 0 Cbd Tincture 1 dose PO DAILY RF: 0 prochlorperazine 25 mg suppository 25 mg [place] Q12H PRN (Reason: nausea and vomiting) Qty: 12 RF: 2 trazodone 50 mg tablet 25 mg PO BEDTIME RF: 0 alprazolam 0.25 mg tablet 0.25 - 0.5 mg PO Q12H PRN (Reason: Anxiety) RF: 0 docusate sodium [Colace] 100 mg Capsule 100 mg PO BID RF: 0 Referrals: Harrison Ott MD [Primary Care Provider] -
[2019-02-22 09:46] LABS: Add Manual Diff / Slide Review NO; Basophils Absolute Auto 0 /uL (0-100); Basophils Percent Auto 0.9 % (0-2); Eosinophils Absolute Auto 100 /uL (0-450); Eosinophils Percent Auto 3.2 % (2-4); Hematocrit 40.3 % (36-46); Hemoglobin 13.1 g/dL (12.0-16.0); Lymphocytes Absolute Auto 600 /uL (1100-4500); Lymphocytes Percent Auto 20.2 % (25-40); Mean Corpuscular HGB Conc 32.6 % (30-36); Mean Corpuscular Hemoglobin 27.1 PG (26-34); Monocytes Absolute Auto 200 /uL (0-900); Monocytes Percent Auto 6.9 % (3-14); Neutrophils Absolute Auto 1900 /uL (1500-7000); Neutrophils Percent Auto 68.8 % (50-75); Platelet Count 247 X10^3/uL (150-400); Red Blood Cell Count 4.85 X10^6/uL (4.0-5.2); Red Cell Distribution Width 13.2 % (11.6-14.8); White Blood Cell Count 2.8 X10^3/uL (4.5-11.0)
[2019-02-22] MEDS: SODIUM CHLORIDE 0.9% 1,000 ML 1000 ML IV (09:47)
--- NOTE | 2019-02-22 09:53 | ED_ITS ---
HPI - Abdominal Pain General Chief Complaint: Abdominal Pain Stated Complaint: bowel blockage, dehydrated Time Seen by Provider: 02/22/19 08:49 Source: patient Mode of arrival: ambulatory Limitations: no limitations History of Present Illness HPI narrative: Patient is a 78-year-old female currently be trended with c hemotherapy for ovarian cancer. She actually had chemotherapy 1 week ago since then she has had vomiting. She was sent to the ER for further evaluation for possible bowel obstruction. She actually had an x-ray done yesterday which showed obstipation she did not come in yesterday but was having worsening cramping today so she came to the ER for further evaluation. She denies any fever past. She is also actually seen evaluated here in the ED on 02/19/2019 MD complaint: abdominal pain Onset (ago): day(s) Related Data Home Medications Medication Instructions Recorded Confirmed Cbd Tincture 1 dose PO DAILY 05/16/18 02/22/19 alprazolam 0.25 - 0.5 mg PO Q12H PRN 02/22/19 02/22/19 docusate sodium [Colace] 100 mg PO BID 02/22/19 02/22/19 trazodone 25 mg PO BEDTIME 02/22/19 02/22/19 Previous Rx's Medication Instructions Recorded ondansetron HCl [Zofran] 4 mg PO Q6-8H PRN #30 tab 01/05/19 morphine [MS Contin] 15 mg PO Q12H 30 Days #60 tab 02/07/19 prochlorperazine 25 mg [place] Q12H PRN #12 each 02/19/19 oxycodone 10 mg PO Q4-6H PRN #60 tab 02/21/19 Allergies Allergy/AdvReac Type Severity Reaction Status Date / Time carboplatin Allergy Severe SEVERE SOB Verified 02/19/19 11:07 Sulfa (Sulfonamide Allergy Intermediate RASH Verified 02/19/19 11:07 Antibiotics) Review of Systems Review of Systems ROS Unobtainable: All systems reviewed & are unremarkable except as noted in HPI and below Constitutional Denies chills, Denies fever(s), Denies lethargy and Denies weakness Eyes Denies change in vision, Denies eye discharge, Denies irritation and Denies loss of vision Cardiovascular Denies chest pain, Denies irregular heart rhythm, Denies lightheadedness, Denies palpitations, Denies dyspnea, Denies dyspnea on exertion and Denies orthopnea Respiratory Denies cough, Denies dyspnea, Denies dyspnea on exertion and Denies wheezing Gastrointestinal Gastrointestinal: Reports as per HPI, Reports abdominal pain, Denies diarrhea, Reports nausea and Reports vomiting Genitourinary Denies hematuria, Denies flank pain, Denies urinary incontinence and Denies urinary urgency Musculoskeletal Denies back pain, Denies muscle weakness, Denies numbness and Denies tingling Integumentary/Breasts Denies pruritus, Denies erythema, Denies rash and Denies wounds Neurologic Denies loss of vision, Denies numbness, Denies tingling and Denies weakness Endocrine Denies palpitations Allergic/Immunologic Denies wheezing [facility] Medical History Normal pressure hydrocephalus (Acute) Ovarian cancer (Acute) Ovarian cancer in remission (Acute) Spinal stenosis in cervical region (Acute) Cervical spondylosis with radiculopathy (Acute) Back pain (Acute) Chest pain (Acute) Ovarian cancer (Acute) Social History household members: family Smoking Status: Current every day smoker Social History household members: family Smoking Status: Current every day smoker Exam Initial Vital Signs Initial Vital Signs: Vital Signs Temperature 98.1 F 02/22/19 08:33 Pulse Rate 78 02/22/19 08:33 Respiratory Rate 18 02/22/19 08:33 Blood Pressure 148/45 H 02/22/19 08:33 Pulse Oximetry 96 02/22/19 08:33 GENERAL: Alert elderly female no acute distress HEENT: Head atraumatic,EOMI, pupils reactive, face symmetric, moist mucous membranes CARDIOVASCULAR: Regular rate and rhythm without murmurs, rubs or gallops. RESPIRATORY: Breath sounds equal bilaterally, no wheezes rales or rhonchi. ABDOMEN: Soft, no distension mild lower abdominal pain no guarding no rebound EXTREMITIES: Normal range of motion, no clubbing or edema. Neurovascularly intact NEUROLOGICAL: Alert and oriented x4.Normal gait and speech. Cranial nerves II through XII grossly intact. SKIN: Warm, dry, no laceration, no petechiae, no rashes or lesions. Course Orders Ordered: Discontinued Medications Sodium Chloride (Normal Saline 0.9%) 1,000 mls @ 1,000 mls/hr IV CONT MARCIA Last Infusion: 02/22/19 10:58 Dose: 0 mls/hr Admin: 02/22/19 09:47 Dose: 1,000 mls/hr Morphine Sulfate (Morphine) 4 mg IV NOW ONE Stop: 02/22/19 09:53 Last Admin: 02/22/19 09:56 Dose: 4 mg Ondansetron HCl (Zofran) 4 mg IV NOW ONE Stop: 02/22/19 09:53 Last Admin: 02/22/19 09:56 Dose: 4 mg Vital Signs - 8 hr 02/22/19 14:06 Pulse Rate 74 Blood Pressure [Left Arm] 183/63 H Pulse Oximetry 96 MDM - Abdominal Pain Lab Data Attestation: I reviewed the patient's lab results. Result diagrams: 02/22/19 09:35 02/22/19 09:35 Lab Results 02/22/19 02/22/19 Range/Units 09:35 09:35 WBC 2.8 L (4.5-11.0) X10^3/uL RBC 4.85 (4.0-5.2) X10^6/uL Hgb 13.1 (12.0-16.0) g/dL Hct 40.3 (36-46) % MCV 83.0 (80-100) fL MCH 27.1 (26-34) PG MCHC 32.6 (30-36) % RDW 13.2 (11.6-14.8) % Plt Count 247 (150-400) X10^3/uL Neut % (Auto) 68.8 (50-75) % Lymph % (Auto) 20.2 L (25-40) % [place] % (Auto) 6.9 (3-14) % Eos % (Auto) 3.2 (2-4) % Baso % (Auto) 0.9 (0-2) % Neut # (Auto) 1900 (6239-2179) /uL Lymph # (Auto) 600 L (1235-2520) /uL [place] # (Auto) 200 (0-900) /uL Eos # (Auto) 100 (0-450) /uL Baso # (Auto) 0 (0-100) /uL Sodium 136 L (137-145) mmol/L Potassium 3.9 (3.4-5.1) mmol/L Chloride 100 (98-107) mmol/L Carbon Dioxide 27 (22-32) mmol/L BUN 13 (7-17) mg/dL Creatinine 0.70 (0.52-1.04) mg/dL Estimated GFR > 60.0 (>60) mL/min BUN/Creatinine Ratio 18.6 (6-22) Glucose 98 (80-110) mg/dL Calcium 8.5 (8.4-10.2) mg/dL Total Bilirubin 0.4 (0.2-1.3) mg/dL AST 16 (14-36) IU/L ALT 17 (9-52) IU/L Alkaline Phosphatase 54 (38-126) U/L Total Protein 6.5 (6.3-8.2) g/dL Albumin 3.5 (3.5-5.0) g/dL Globulin 3.0 (1.7-4.1) g/dL Albumin/Globulin Ratio 1.2 (1.0-2.8) Lipase 36 (23-300) U/L Point of care testing: Urine Dip Bedside Urine Glucose Negative Bedside Urine Bilirubin - Negative Bedside Urine Ketone ++ 40 Urine Specific [place] 1.020 Bedside Urine Occult Blood - Negative Bedside Urine pH 6.0 Bedside Urine Protein - Negative Bedside Urine Urobilinogen +/- 1mg Bedside Urine Nitrite - Negative Bedside Urine Leukocytes - Negative Esterase Imaging Data Abdominal x-ray: Radiologist's impression: PROCEDURE: XR ABDOMEN MIN 2V INDICATIONS: abdominal pain TECHNIQUE: 2 views of the abdomen were acquired. COMPARISON: [facility], , ABDOMEN 1 VIEW, 05/03/2017, 10:02. [facility], CR, ABDOMEN 1 VIEW, 08/05/2011, 10:29. FINDINGS: Surgical changes and devices: Multiple clips are overlying the abdomen and pelvis. Bowel: No pneumoperitoneum. The bowel gas pattern is normal. Prominent stool is present. Soft tissues: No masses; visualized solid organ contours appear normal in size. No suspicious abdominal calcifications. Bones: No suspicious bony abnormalities. IMPRESSION: Prominent stool consistent with constipation. No obstruction. Dictated by: Aracely Rueda M.D. on 02/22/2019 at 9:44 CT scan - abdomen: Radiologist's impression: [place] report 1. Fluid-filled borderline prominent proximal small bowel loops with mucosal enhancement is highly suggestive of enteritis. Focal ileus within proximal small bowel may be present. No complete obstruction. 2. Probable colonic constipation 3. Colonic diverticulosis without diverticulitis. 4. Hypodense mass and mildly enlarged mesenteric retroperitoneal lymph nodes may not have significantly changed remains suspicious for neoplasm with lymphatic metastasis 5. No ascites or drainable fluid collection 6. A left adrenal nodule lesion may be metastatic in nature. This is unchanged 7. Small to moderate sized hiatal hernia 8. Mild intrahepatic or extrahepatic biliary dilatation is similar to prior studies and of doubtful thick significance. 9. Severe aortic and iliac artery atherosclerosis borderline aneurysmal dilatation of lower abdomen aorta just above the bifurcation. 10 right-sided hydronephrosis and hydroureter is felt to be exaggerated by distended urinary bladder. No renal or ureteral calculi are evident MDM Narrative Medical decision making narrative: Patient has now had 2 abdominal x-rays which do not show any obstruction. However due to her history of cancer she likely does need a CT she has not had 1 since December. Unfortunately [facility] CT scanner is down patient will be transported to [facility] for a CT scan. The patient and family agreeable. The patient returned without any complications she is tolerating oral fluids. At this time recommend outpatient follow-up with Oncology and PCP. She feels ready and able to go home. Discharge Plan Departure Patient Disposition: Home Clinical Impression: Gastroenteritis Vomiting Qualifiers: Vomiting type: unspecified Vomiting Intractability: non-intractable Nausea presence: with nausea Qualified Code(s): R11.2 - Nausea with vomiting, unspecified Discharge Date/Time: 02/22/19 15:02 Interventions: ED Discharge Assessment Last Done: 02/22/19 15:02 Instructions: DI for Abdominal Pain-Adult Activity Restrictions/Additional Instructions: *You have been diagnosed with abdominal pain, vomiting *What to do: At this time increase of fluid intake as tolerated try clear liquids and may advance. May consider palliative care is done with chemotherapy *Continue to take medications as directed *Follow up with your primary care provider in 2-3 days *Return to ER if you should have increasing pain, persistent vomiting inability keep down fluids or any new, worsening or concerning symptoms Prescriptions: No Action ondansetron HCl [Zofran] 4 mg Tablet 4 mg PO Q6-8H PRN (Reason: Nausea) Qty: 30 RF: 2 morphine [MS Contin] 15 mg Tablet Extended Release 15 mg PO Q12H 30 Days Qty: 60 RF: 0 oxycodone 10 mg Tablet 10 mg PO Q4-6H PRN (Reason: cancer pain) Qty: 60 RF: 0 Cbd Tincture 1 dose PO DAILY RF: 0 prochlorperazine 25 mg suppository 25 mg [place] Q12H PRN (Reason: nausea and vomiting) Qty: 12 RF: 2 trazodone 50 mg tablet 25 mg PO BEDTIME RF: 0 alprazolam 0.25 mg tablet 0.25 - 0.5 mg PO Q12H PRN (Reason: Anxiety) RF: 0 docusate sodium [Colace] 100 mg Capsule 100 mg PO BID RF: 0 Referrals: Harrison Ott MD [Primary Care Provider] -
[2019-02-22 09:55] LABS: Alanine Aminotransferase 17 IU/L (9-52); Albumin 3.5 g/dL (3.5-5.0); Albumin Globulin Ratio 1.2 (1.0-2.8); Alkaline Phosphatase 54 U/L (38-126); Aspartate Aminotransferase 16 IU/L (14-36); BUN Creatinine Ratio 18.6 (6-22); Bilirubin Total 0.4 mg/dL (0.2-1.3); Blood Urea Nitrogen 13 mg/dL (7-17); Calcium 8.5 mg/dL (8.4-10.2); Carbon Dioxide 27 mmol/L (22-32); Chloride 100 mmol/L (98-107); Estimated Glomerular Filt Rate > 60.0 mL/min (>60); Glucose 98 mg/dL (80-110); HEMOLYSIS < 15 (0-50); Lipase 36 U/L (23-300); Potassium 3.9 mmol/L (3.4-5.1); Sodium 136 mmol/L (137-145); Total Protein 6.5 g/dL (6.3-8.2)
[2019-02-22] MEDS: MORPHINE 4 MG/ML INJ IV (09:56)
[2019-02-22] MEDS: ONDANSETRON 4 MG/2 ML INJ IV (09:56)
--- NOTE | 2019-02-22 10:14 | PC.NURSE ---
Given sandwich and milk per . Meds. Stable
[2019-02-22 11:00] VITALS: BP 176/55; PULSE 66; O2SAT 95
--- NOTE | 2019-02-22 13:46 | PC.NURSE ---
[id number] pt returned from [facility] reports no changes daughter at bedside
[2019-02-22 14:06] VITALS: BP 183/63; PULSE 74; O2SAT 96
== END 2019-02-22 15:02 | disposition home or self-care (01) ==
PROVIDERS: Emergency Provider Emergency Medicine; PCP Family Medicine
DX: K52.9 Noninfective gastroenteritis and colitis, unspecified (principal)
CPT/HCPCS: 36591; 74019; 80053; 81003; 83690; 85025; 96361; 96374; 96375; 99283; 99284; J2270; J2405

== ENCOUNTER → 2019-05-04 11:58 | Outpatient (CLI) | payer MEDICARE, OTHER, SELFPAY ==
--- NOTE | 2019-05-04 13:07 | DI.CT.S_ITS ---
PROCEDURE: CT CHEST ABD PEL W CON INDICATIONS: ovarian cancer TECHNIQUE: After the administration of oral and intravenous contrast, 5 mm thick sections acquired from the lung apices to the symphysis. 5 mm coronal and sagittal reformats were performed, with additional 7 mm coronal MIP reformats through the lungs. For radiation dose reduction, the following was used: automated exposure control, adjustment of mA and/or kV according to patient size. COMPARISON: Merged With [facility], CT, CT CHEST ABD PEL W CON, 12/12/2018, 12:09. Merged With [facility], CT, CT CHEST ABD PEL W CON, 09/26/2018, 9:05. FINDINGS: Image quality: Excellent. CHEST: Lungs and pleura: No acute airspace opacities. No pleural effusions or pneumothorax. Central and peripheral airways appear patent and normal in caliber. Mediastinum: Heart size is normal. No pericardial effusion. No mediastinal or hilar adenopathy by size criteria. Thoracic aorta and central pulmonary arteries are normal in size. Esophagus is normal in caliber. No hiatal hernia. Chest wall: No axillary or supraclavicular adenopathy by size criteria. Thyroid gland appears normal where well seen. ABDOMEN: Solid organs: Liver is normal in size and enhancement. Gallbladder appears normal. Biliary system is non dilated. Pancreas enhances normally. Spleen is normal in size and enhancement. No adrenal nodules. Kidneys demonstrate normal size and enhancement, but there is now moderately severe hydronephrosis involving the right kidney. Peritoneum and bowel: Bowel loops demonstrate normal wall thickness and caliber. There is a slight amount of free fluid or air. Nodes and vessels: There is both retroperitoneal and mesenteric adenopathy by size criteria. , Involving the aortocaval space in the left periaortic retroperitoneum and extending into the paul hepatis and root of the small bowel mesentery. Aorta and inferior vena cava are normal in size. Miscellaneous: No ventral hernias. PELVIS: Genitourinary: Bladder wall thickness is normal. Miscellaneous: No inguinal hernias but there is adenopathy extending from the abdomen into the pelvis, and a slowly progressive enlarging mass at the posterior right hemipelvis invading or encasing a loop of small bowel which has its current patent lumen slitlike, seen centered on series 2 image 102. Fluid appears to pass through this area but it is nearly obstructed by the growing mass now measuring 4.7 x 3.6 cm in maximal axial dimension. This mass also appears to represent the source of progressive right-sided hydronephrosis.. Bones: No suspicious bony lesions. No vertebral body compression fractures. IMPRESSION: 1. Progression of multifocal adenopathy and metastatic disease within the peritoneal space, with reference to prior recent comparison CT scanning including from 12/12/18. A dominant right posterior pelvic mass encases and may invade a small bowel loop crossing through that area nearly occluding the small bowel at this time. Surgical consultation may be warranted versus radiation therapy consultation given the high-grade stenosis and the likelihood of progression to complete obstruction at that site. 2. High-grade right urinary tract outflow restriction with secondary moderately severe right hydronephrosis, also associated with the enlarging right pelvic mass discussed in finding 1 the above. 3. 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 Dictated by: Dwayne Galdamez M.D. on 05/04/2019 at 15:28 Approved by: Dwayne Galdamez M.D. on 05/04/2019 at 15:37
== END ==
PROVIDERS: PCP Family Medicine
DX: C56.9 Malignant neoplasm of unspecified ovary (principal); N13.30 Unspecified hydronephrosis; R19.00 Intra-abdominal and pelvic swelling, mass and lump, unspecified site; K56.600 Partial intestinal obstruction, unspecified as to cause; R59.0 Localized enlarged lymph nodes
CPT/HCPCS: 71260; 74177; Q9967